=== PATIENT | male | born 1960 | race Caucasian/White ===

== ENCOUNTER 2023-06-25 12:00 | Outpatient (CLI) | payer OTHER, SELFPAY ==
[2023-06-25 12:55] LABS: Glucose Point of Care 237 mg/dl (65-105)
[2023-06-25 12:56] LABS: Glucose Point of Care 231 mg/dl (65-105)
== END 2023-06-25 12:01 | disposition home or self-care (01) ==
PROVIDERS: PCP Internal Medicine; Visit Provider Internal Medicine
DX: R91.8 Other nonspecific abnormal finding of lung field (principal)
CPT/HCPCS: 99199

== ENCOUNTER 2023-07-02 13:42 | Outpatient (CLI) | payer OTHER, SELFPAY ==
--- NOTE | ~2023-07-02 | PE_ITS ---
EXAMINATION: PET skull to mid thigh DATE: 07/02/2023 15:36 INDICATION: Multiple pulmonary nodules TECHNIQUE: Blood glucose level was 108 mg/dL. 9.584 mCi of 18-fluorodeoxyglucose (18-FDG) was adminis tered i.v. Low dose computed tomography (CT) images were acquired from the base of the brain to the p roximal thighs for attenuation correction and anatomic localization. Positron emission tomography (PE T) images were acquired in the same distribution beginning 51 minutes after injection. Images includi ng fused PET/CT images were reconstructed in axial, coronal, and sagittal planes. Automated exposure control technique was employed. The dose-length product was 677.99mGy-cm. COMPARISON: None FINDINGS: Head/neck: There is symmetric increased activity in the oral cavity, palatine tonsils, submandibular glands and ocular muscles without CT correlate, likely physiologic. No pathologically enlarged cervical lymphade nopathy or suspicious foci of increased FDG uptake in the visualized head or neck. Chest: Mild emphysema. 18 x 12 mm spiculated subsolid nodule at the posterior segment of the left upper lobe without significant increased FDG uptake with maximal SUV of 1.7. 2.8 x 1.9 cm nodule at the junctio n of the superior and basilar segments of the left lower lobe with maximal SUV of 8.5 suspicious for primary bronchogenic carcinoma. Small focus of mild increased FDG uptake with maximal SUV of 5.0 at t he left hilum along the pulmonary vasculature to the left lower lobe. This could represent a reactive or metastatic lymph node however a discrete lymph node is unable to be distinguished from the vascul ature in the absence of intravenous contrast. No other suspicious pulmonary nodules or pleural effusi on. Heart size is normal. Small amount of atherosclerotic coronary artery calcific lesion. No pericar dial effusion. Thoracic aorta is normal in caliber. No pathologically enlarged or FDG avid mediastina l lymphadenopathy. Subcentimeter focus of prominent FDG uptake with maximal SUV of 11.6 cm with a 6 m m sclerotic lesion along the lateral margin of the scapular body which is concerning for metastatic d isease. Abdomen/pelvis/proximal thighs: Physiologic renal accumulation and excretion of FDG activity in the kidneys, bladder and along portio ns of ureters. Normal degree and heterogenous pattern of increased uptake throughout the liver withou t radiologic correlate or dominant FDG avid lesion. Multiple calcified gallstones within the otherwis e normal-appearing gallbladder. The pancreas, spleen and bilateral adrenal glands are normal. Mild up take scattered throughout the bowels without radiologic correlate, also likely physiologic. There is subtle sclerosis at the right posterior aspect of the L1 vertebral body where there is additional inc reased FDG uptake with maximal SUV of 8.3. A few additional foci of prominent bone uptake in the pelv is. This includes a lesion at the cephalad aspect of the right sacral ala with maximal SUV of 14.7 an d subtle corresponding ill-defined increased marrow density. 1.5 cm lytic lesion at the right side of the S4 vertebral body which erodes through the anterior cortex and with increased FDG uptake with ma ximal SUV of 11.3. There is a lesion without evident correlate on the CT imaging at the right innomin ate bone with maximal SUV of 15.4. Finally there is an approximately 1 cm ill-defined sclerotic lesio n at the left pubic body with maximal SUV of 7.1. No other abnormal foci of increased FDG uptake or p athologically enlarged lymphadenopathy in the abdomen, pelvis or proximal thighs. IMPRESSION: 1. Increased FDG uptake associated with a 2.8 x 1.9 cm left lower lobe nodule suspicious for primary bronchogenic carcinoma. 2. Small focus of mild uptake at the left hilum suspicious for a metastatic lymph node which is unabl e to distinguish from the pulmonary vasculature on noncontrast imaging. No other suspec
[2023-07-02 14:15] LABS: Glucose Point of Care 108 mg/dl (65-105)
== END 2023-07-02 13:43 | disposition home or self-care (01) ==
PROVIDERS: PCP Internal Medicine; Visit Provider Internal Medicine
DX: R91.8 Other nonspecific abnormal finding of lung field (principal); K80.20 Calculus of gallbladder without cholecystitis without obstruction; M89.9 Disorder of bone, unspecified
CPT/HCPCS: 78815; A9552

== ENCOUNTER 2025-01-19 15:55 | Emergency (ER) | payer OTHER, SELFPAY ==
--- NOTE | ~2025-01-19 | CT_ITS ---
CLINICAL INDICATION: Fall with left hip pain. COMPARISON: Reference is made to a PET/CT dated 07/02/2023. TECHNIQUE: Computed tomography (CT) of the pelvis was performed without intravenous contrast. The dos e-length product was 471.22 mGy-cm. FINDINGS/OBSERVATIONS: A comminuted fracture of the left superior pubic ramus is identified, adjacent to the pubic symphysis without normal mineralization for which bony metastatic disease suspected. An expansile lytic and blastic lesion is identified within the distal sacrum, also likely representin g metastatic disease. No additional osseous lesions are appreciated. IMPRESSION: Comminuted fracture of the left superior pubic ramus. Metastatic bony disease, as detailed above Reviewed, dictated and finalized at location A.
[2025-01-19 15:58] VITALS: BP 149/89; PULSE 74; RESP 16; TEMP 36.8; O2SAT 96
--- OUTSIDE RECORDS SUMMARY | 2025-01-19 15:58 | XMS_ITS | Data Portability ---
Author Organization [facility] [place], Main Office Address [address] [place] [address] Assessment No assessment recorded. Plan of Treatment Reminders Order Date Submit Date Provider Last Modified By Organization Details Last Modified Time Details Appointments Any 15 2024 09:15A Latasha Colón MD Not available Not available Not available Lab glycohemo globin, total, blood 2023 024 [facility] (Lab), [address] [place], [address], 06/22/2024 21:05:16 CMP, serum or plasma 2023 024 [facility] (Lab), [address] [place], [address], 06/22/2024 20:14:26 PSA, serum or plasma 2023 024 [facility] (Lab), [address] [place], [address], 02/18/2024 22:31:27 glycohemo globin, total, blood 2023 024 [facility] (Lab), [address] [place], [address], 02/18/2024 22:29:09 CMP, serum or plasma 2023 024 [facility] (Lab), [address] [place], [address], 02/18/2024 21:08:14 glycohemo globin, total, blood 2022 023 [facility] (Lab), [address] [place], [address], 10/22/2023 20:31:08 CMP, serum or plasma 2022 023 [facility] (Lab), [address] [place], [address], 10/22/2023 20:23:13 microalbu min, urine 2022 023 [facility] (Lab), [address] [place], [address], 10/23/2023 01:14:33 urinalysi s, complete 2022 023 [facility] (Lab), [address] [place], [address], 10/23/2023 02:28:39 lipid panel, serum 2022 023 [facility] (Lab), [address] [place], [address], 10/22/2023 20:23:21 TSH, serum or plasma [email or web address] [place] [address] (Lab), [address] [place], [address], 09/30/2023 08:48:01 Referral None recorded. Procedures None recorded. Surgeries None recorded. Imaging None recorded. Medication Orders glimepiri de 4 mg tablet 2023 024 [facility] #[id number], [address] , [place], [place], [id number], 06/22/2024 10:29:37 amlodipin e 10 mg tablet 04/2023 [facility] #[id number], [address], [place], [place], [id number], 02/18/2024 11:43:42 glimepiri de 4 mg tablet 2023 [facility] #[id number], [address], [place], [place], [id number], 02/18/2024 11:43:41 Patient TargetsNo targets recorded. Patient Instructions Encounter Date Encounter Id Patient Instructions Last Modified By Organization Details Last Modified Time 09/16/2023 [id number] risk assessment* [email or web address] Not availabl e 09/16/2023 13:16:43 INFLUENZA VACCIN E Recommended today, but patient declined TD/TDAP Recommended today, patient declined Ordered Patient will get at local pharmacy/health department PNEUMONIA VACCINE Ordered Recommend ed today, patient declined Patient will get at local pharmacy/health department Recomm ended at age 67 SHINGLES Ordered Recommend ed today, patient declined Patient will get at local pharmacy/health department PSA COLORECTAL SCREENING No screening necessary patient is up to date DEPRESSION SCREENING Negative BMI Overweight continue your current weight loss efforts try to lose 5% of your body weight try to lose 10% of your body weight NUTRITION PHYSICAL ACTIVITY Need more exercise/physical activity ALCOHOL USE No alcohol use Occasional/So cial Use TOBACCO USE former smoker LUNG CANCER SCREENING SEXUALLY ACTIVE HEPATITIS C SCREENING Not indicated GLUCOSE SCREENING LIPID SCREENING [email or web address] Not available 09/16/2023 12:03:31 Reason for Referral None Reported. Results Created Date Observation Date Name Description Value Unit Range Abnormal Flag Note LastModifiedBy Organization Detail LastModifiedTime 10/22/2010/22/2023 URINA LYSIS COMPL ETE, IRIS color ORANGE abnormal Not Available [facility] (Lab) [address] [place], [address], 10/22/2023 20:17:44 10/22/20 23 10/22/2023 URINA LYSIS COMPL ETE, IRIS appear EXTRA TURBID abnormal Not Available [facility] (Lab) [address] [place], [address], 10/22/2023 20:17:44 10/22/20 23 10/22/2023 URINA LYSIS COMPL ETE, IRIS specific gravity 1.021 1.001- 1.030 Not Available [facility] (Lab) [address] [place], [address], 10/22/2023 20:17:44 10/22/20 23 10/22/2023 URINA LYSIS COMPL ETE, IRIS pH 5.5 pH_un its 5.0-9. 0 Not Available [facility] (Lab) [address] [place], [address], 10/22/2023 20:17:44 10/22/20 23 10/22/2023 URINA LYSIS COMPL ETE, IRIS leukocytes 75 rose/u L negati ve- abnormal Not Available [facility] (Lab) [address] [place], [address], 10/22/2023 20:17:44 10/22/20 23 10/22/2023 URINA LYSIS COMPL ETE, IRIS nitrite NEGATI VE negati ve- Not Available [facility] (Lab) [address] [place], [address], 10/22/2023 20:17:44 10/22/20 23 10/22/2023 URINA LYSIS COMPL ETE, IRIS protein 50 mg/dL negati ve- abnormal Not Available [facility] (Lab) [address] [place], [address], 10/22/2023 20:17:44 10/22/20 23 10/22/2023 URINA LYSIS COMPL ETE, IRIS glucose 50 mg/dL normal - abnormal Not Available [facility] (Lab) [address] [place], [address], 10/22/2023 20:17:44 10/22/20 23 10/22/2023 URINA LYSIS COMPL ETE, IRIS ketones NEGATI VE mg/dL negati ve- Not Available [facility] (Lab) [address] [place], [address], 10/22/2023 20:17:44 10/22/2010/22/2023 URINA LYSIS COMPL ETE, IRIS urobilinogen NORMAL mg/dL normal - Not Available [facility] (Lab) [address] [place], [address], 10/22/2023 20:17:44 10/22/20 23 10/22/2023 URINA LYSIS COMPL ETE, IRIS bilirubin NEGATI VE mg/dL negati ve- Not Available [facility] (Lab) [address] [place], [address], 10/22/2023 20:17:44 10/22/20 23 10/22/2023 URINA LYSIS COMPL ETE, IRIS blood NEGATI VE mg/dL negati ve- Not Available [facility] (Lab) [address] [place], [address], 10/22/2023 20:17:44 10/22/20 23 10/22/2023 URINA LYSIS COMPL ETE, IRIS white blood cells NONE /i??h pfi?? 0-8 Not Available [facility] (Lab) [address] [place], [address], 10/22/2023 20:17:44 10/22/20 23 10/22/2023 URINA LYSIS COMPL ETE, IRIS red blood cells NONE /i??h pfi?? 0-4 Not Available [facility] (Lab) [address] [place], [address], 10/22/2023 20:17:44 10/22/20 23 10/22/2023 URINA LYSIS COMPL ETE, IRIS bacteria NONE Not Available [facility] (Lab) [address] [place], [address], 10/22/2023 20:17:44 10/22/20 23 10/22/2023 URINA LYSIS COMPL ETE, IRIS mucous MANY /i??l pfi?? abnormal Not Available [facility] (Lab) [address] [place], [address], 10/22/2023 20:17:44 10/22/20 23 10/22/2023 URINA LYSIS COMPL ETE, IRIS squamous epithelial NONE /i??l pfi?? Not Available [facility] (Lab) [address] [place], [address], 10/22/2023 20:17:44 10/22/20 23 10/22/2023 URINA LYSIS COMPL ETE, IRIS amorphous crystal FEW /i??h pfi?? abnormal Not Available [facility] (Lab) [address] [place], [address], 10/22/2023 20:17:44 10/22/20 23 10/22/2023 COMPR EHENS DELORIS METAB OLIC PANEL sodium 139 mmol/ L 137-14 5 Not Available [facility] (Lab) [address] [facility] [place], [address], 10/22/2023 20:23:13 10/22/20 23 10/22/2023 COMPR EHENS DELORIS METAB OLIC PANEL potassium 4.4 mmol/ L 3.5-5. 1 Not Available [facility] (Lab) [address] [place], [address], 10/22/2023 20:23:13 10/22/20 23 10/22/2023 COMPR EHENS DELORIS METAB OLIC PANEL chloride 104 mmol/ L 98-107 Not Available [facility] (Lab) [address] [place], [address], 10/22/2023 20:23:13 10/22/20 23 10/22/2023 COMPR EHENS DELORIS METAB OLIC PANEL carbon dioxide 25 mmol/ L 22-30 Not Available [facility] (Lab) [address] [place], [address], 10/22/2023 20:23:13 10/22/20 23 10/22/2023 COMPR EHENS DELORIS METAB OLIC PANEL anion gap 14.4 mmol/ L 14-22 Not Available [facility] (Lab) [address] [place], [address], 10/22/2023 20:23:13 10/22/20 23 10/22/2023 COMPR EHENS DELORIS METAB OLIC PANEL glucose 241 mg/dL 70-99 high Not Available [facility] (Lab) [address] [place], [address], 10/22/2023 20:23:13 10/22/20 23 10/22/2023 COMPR EHENS DELORIS METAB OLIC PANEL BUN 12 mg/dL 8-19 Not Available [facility] (Lab) [address] [place], [address], 10/22/2023 20:23:13 10/22/20 23 10/22/2023 COMPR EHENS DELORIS METAB OLIC PANEL creatinine 0.82 mg/dL 0.66-1 .25 Not Available [facility] (Lab) [address] [place], [address], 10/22/2023 20:23:13 10/22/20 23 10/22/2023 COMPR EHENS DELORIS METAB OLIC PANEL GFR >60 Refer ence Range : Palmer ge GFR Healt hy Adult : >60 mL/mi n/1.7 3 m2 Chron ic Kidne y Disea se: 15-60 mL/mi n/1.7 3 m2 Kidne y Failu re: <15/m L/min /1.73 m2 www.[email or web address]. nih.g ov The MDRD study equat ion has not been valid ated in child sherie <18 years of age; pregn ant women ; the elder ly >85 years of age; or in some racia l or ethni c subgr oups, such as Hispa nics. Outsi de the valid ated mp eters , estim ated GFR is less accur ate, requi ring clini romina judgm ent on a case- by-ca se basis . Clini romina inter preta tion for other races and ages must be made by the clini marck. The MDRD study equat ion has not been valid ated for the evalu ation of serum creat inine relat ed to nutri ernesto l statu s or medic ation usage . For perso ns <18 years of age, a pedia tric GFR calcu lator is avail able on the [facility] websi te: https ://nicolas w.kid yesenia.o rg/pr ofess ional s/kdo qi/gf r_cal culat or Not Available [facility] (Lab) [address] [place], [address], 10/22/2023 20:23:13 10/22/20 23 10/22/2023 COMPR EHENS DELORIS METAB OLIC PANEL alkaline phosphatase 117 U/L 38-126 Not Available [facility] (Lab) [address] [place], [address], 10/22/2023 20:23:13 10/22/20 23 10/22/2023 COMPR EHENS DELORIS METAB OLIC PANEL alanine aminotransfe rase 38 U/L 0-50 Not Available [facility] (Lab) [address] [place], [address], 10/22/2023 20:23:13 10/22/20 23 10/22/2023 COMPR EHENS DELORIS METAB OLIC PANEL aspartate aminotransfe rase 29 U/L 15-46 Not Available [facility] (Lab) [address] [place], [address], 10/22/2023 20:23:13 10/22/20 23 10/22/2023 COMPR EHENS DELORIS METAB OLIC PANEL bilirubin, total 0.60 mg/dL 0.20-1 .30 Not Available [facility] (Lab) [address] [place], [address], 10/22/2023 20:23:13 10/22/20 23 10/22/2023 COMPR EHENS DELORIS METAB OLIC PANEL calcium 9.3 mg/dL 8.4-10 .2 Not Available [facility] (Lab) [address] [place], [address], 10/22/2023 20:23:13 10/22/20 23 10/22/2023 COMPR EHENS DELORIS METAB OLIC PANEL total protein 7.0 g/dL 6.3-8. 2 Not Available [facility] (Lab) [address] [place], [address], 10/22/2023 20:23:13 10/22/20 23 10/22/2023 COMPR EHENS DELORIS METAB OLIC PANEL albumin 4.3 g/dL 3.4-5. 0 Not Available [facility] (Lab) [address] [place], [address], 10/22/2023 20:23:13 10/22/20 23 10/22/2023 COMPR EHENS DELORIS METAB OLIC PANEL globulin 2.7 g/dL 2.6-4. 2 Not Available [facility] (Lab) [address] [place], [address], 10/22/2023 20:23:13 10/22/20 23 10/22/2023 COMPR EHENS DELORIS METAB OLIC PANEL A/G ratio 1.6 ratio 1.0-2. 0 Not Available [facility] (Lab) [address] [place], [address], 10/22/2023 20:23:13 10/22/20 23 10/22/2023 LIPID PANEL cholesterol 214 mg/dL 140-19 9 high NIH ARNOLDO NSUS RECOM MENDA TION FOR FARTUN STERO L: ADULT CHILD LOW RISK: <200 <170 BORDE RLINE : <200- 239 ----- HIGH RISK: >240 >200 Not Available [facility] (Lab) [address] [place], [address], 10/22/2023 20:23:21 10/22/20 23 10/22/2023 LIPID PANEL triglyceride s 287 mg/dL 0-150 high NIH ARNOLDO NSUS REPOR T RECOM MENDA TION FOR TRIGL YCERI ASHLEY: ADULT CHILD LOW RISK: <150 ----- BODER LINE: 150-1 99 ----- HIGH RISK: >200 ----- Not Available [facility] (Lab) [address] [place], [address], 10/22/2023 20:23:21 10/22/20 23 10/22/2023 LIPID PANEL HDL cholesterol 32 mg/dL 40- low Not Available [facility] (Lab) [address] [place], [address], 10/22/2023 20:23:21 10/22/2010/22/2023 LIPID PANEL LDL cholesterol, calculated 125 mg/dL 0-130 NIH ARNOLDO NSUS REPOR T RECOM MENDA TIONS FOR LDL: ADULT CHILD LOW RISK <130 <110 (OPTI MAL LDL) <100 ----- BORDE RLINE : 130-1 59 ----- HIGH RISK: >160 >130 A TRIGL YCERI DE RESUL T >400 INVAL IDATE S THE CALCU LATIO N FOR LDL FRACT IONAT ION - THE LDL RESUL T WILL NOT BE REPOR HEENA. Not Available [facility] (Lab) [address] [place], [address], 10/22/2023 20:23:21 10/22/20 23 10/22/2023 HEMOG LOBIN A1C HA1C 8.9 % 4.0-6. 0 high Diabe rita Scree alice Crite peewee: <5.7% Consi stent with absen ce of diabe rita 5.7-6 .4% Consi stent with incre ased risk for diabe rita (pred iabet es) >OR=6 .5% Consi stent with diabe rita REFER ENCE: Diabe rita Care 2016, 39(Pelaez ppl.1 ):s13 -s22 Not Available [facility] (Lab) [address] [place], [address], 10/22/2023 20:31:08 10/22/20 23 10/23/2023 MICRO ALBUM IN RANDO M URINE microalbumin , urine 94.7 mg/L 0.0-16 .6 high Not Available [facility] (Lab) [address] [place], [address], 10/23/2023 01:14:33 02/18/20 24 02/18/2024 COMPR EHENS DELORIS METAB OLIC PANEL sodium 136 mmol/ L 137-14 5 low Not Available [facility] (Lab) [address] [place], [address], 02/18/2024 21:08:14 02/18/20 24 02/18/2024 COMPR EHENS DELORIS METAB OLIC PANEL potassium 4.4 mmol/ L 3.5-5. 1 Not Available [facility] (Lab) [address] [place], [address], 02/18/2024 21:08:14 02/18/20 24 02/18/2024 COMPR EHENS DELORIS METAB OLIC PANEL chloride 102 mmol/ L 98-107 Not Available [facility] (Lab) [address] [place], [address], 02/18/2024 21:08:14 02/18/20 24 02/18/2024 COMPR EHENS DELORIS METAB OLIC PANEL carbon dioxide 25 mmol/ L 22-30 Not Available [facility] (Lab) [address] [place], [address], 02/18/2024 21:08:14 02/18/20 24 02/18/2024 COMPR EHENS DELORIS METAB OLIC PANEL anion gap 13.4 mmol/ L 14-22 low Not Available [facility] (Lab) [address] [place], [address], 02/18/2024 21:08:14 02/18/20 24 02/18/2024 COMPR EHENS DELORIS METAB OLIC PANEL glucose 379 mg/dL 70-99 high Not Available [facility] (Lab) [address] [place], [address], 02/18/2024 21:08:14 02/18/20 24 02/18/2024 COMPR EHENS DELORIS METAB OLIC PANEL BUN 14 mg/dL 8-19 Not Available [facility] (Lab) [address] [place], [address], 02/18/2024 21:08:14 02/18/20 24 02/18/2024 COMPR EHENS DELORIS METAB OLIC PANEL creatinine 0.80 mg/dL 0.66-1 .25 Not Available [facility] (Lab) [address] [place], [address], 02/18/2024 21:08:14 02/18/20 24 02/18/2024 COMPR EHENS DELORIS METAB OLIC PANEL GFR >60 Refer ence Range : Palmer ge GFR Healt hy Adult : >60 mL/mi n/1.7 3 m2 Chron ic Kidne y Disea se: 15-60 mL/mi n/1.7 3 m2 Kidne y Failu re: <15/m L/min /1.73 m2 www.n iddk. nih.g ov The MDRD study equat ion has not been valid ated in child sherie <18 years of age; pregn ant women ; the elder ly >85 years of age; or in some racia l or ethni c subgr oups, such as Hispa nics. Outsi de the valid ated mp eters , estim ated GFR is less accur ate, requi ring clini romina judgm ent on a case- by-ca se basis . Clini romina inter preta tion for other races and ages must be made by the clini marck. The MDRD study equat ion has not been valid ated for the evalu ation of serum creat inine relat ed to nutri ernesto l statu s or medic ation usage . For perso ns <18 years of age, a pedia tric GFR manju fonseca is avail able on the [facility] websi te: https :[email or web address] w.anabel galindoy.o lizbeth/pr ofess ional s/kdo qi/gf r_cal culat or Not Available [facility] (Lab) [address] [place], [address], 02/18/2024 21:08:14 02/18/20 24 02/18/2024 COMPR EHENS DELORIS METAB OLIC PANEL alkaline phosphatase 95 U/L 38-126 Not Available [facility] (Lab) [address] [place], [address], 02/18/2024 21:08:14 02/18/20 24 02/18/2024 COMPR EHENS DELORIS METAB OLIC PANEL alanine aminotransfe rase 102 U/L 0-50 high Not Available [facility] (Lab) [address] [place], [address], 02/18/2024 21:08:14 02/18/20 24 02/18/2024 COMPR EHENS DELORIS METAB OLIC PANEL aspartate aminotransfe rase 53 U/L 15-46 high Not Available [facility] (Lab) [address] [place], [address], 02/18/2024 21:08:14 02/18/20 24 02/18/2024 COMPR EHENS DELORIS METAB OLIC PANEL bilirubin, total 0.50 mg/dL 0.20-1 .30 Not Available [facility] (Lab) [address] [place], [address], 02/18/2024 21:08:14 02/18/20 24 02/18/2024 COMPR EHENS DELORIS METAB OLIC PANEL calcium 10.0 mg/dL 8.4-10 .2 Not Available [facility] (Lab) [address] [place], [address], 02/18/2024 21:08:14 02/18/20 24 02/18/2024 COMPR EHENS DELORIS METAB OLIC PANEL total protein 7.0 g/dL 6.3-8. 2 Not Available [facility] (Lab) [address] [place], [address], 02/18/2024 21:08:14 02/18/20 24 02/18/2024 COMPR EHENS DELORIS METAB OLIC PANEL albumin 4.6 g/dL 3.4-5. 0 Not Available [facility] (Lab) [address] [place], [address], 02/18/2024 21:08:14 02/18/20 24 02/18/2024 COMPR EHENS DELORIS METAB OLIC PANEL globulin 2.4 g/dL 2.6-4. 2 low Not Available [facility] (Lab) [address] [place], [address], 02/18/2024 21:08:14 02/18/20 24 02/18/2024 COMPR EHENS DELORIS METAB OLIC PANEL A/G ratio 1.9 ratio 1.0-2. 0 Not Available [facility] (Lab) [address] [place], [address], 02/18/2024 21:08:14 02/18/20 24 02/18/2024 HEPAT IC/LI NICK PANEL alkaline phosphatase 95 U/L 38-126 Not Available [facility] (Lab) [address] [place], [address], 02/18/2024 22:11:58 02/18/20 24 02/18/2024 HEPAT IC/LI NICK PANEL alanine aminotransfe rase 102 U/L 0-50 high Not Available [facility] (Lab) [address] [place], [address], 02/18/2024 22:11:58 02/18/20 24 02/18/2024 HEPAT IC/LI NICK PANEL aspartate aminotransfe rase 53 U/L 15-46 high Not Available [facility] (Lab) [address] [place], [address], 02/18/2024 22:11:58 02/18/20 24 02/18/2024 HEPAT IC/LI NICK PANEL bilirubin, total 0.50 mg/dL 0.20-1 .30 Not Available [facility] (Lab) [address] [place], [address], 02/18/2024 22:11:58 02/18/20 24 02/18/2024 HEPAT IC/LI NICK PANEL bilirubin, conjugated (direct) 0.00 mg/dL 0.00-0 .30 Not Available [facility] (Lab) [address] [place], [address], 02/18/2024 22:11:58 02/18/20 24 02/18/2024 HEPAT IC/LI NICK PANEL biliurubin,u ncong. (indirect) 0.30 mg/dL 0.00-1 .1 Not Available [facility] (Lab) [address] [place], [address], 02/18/2024 22:11:58 02/18/20 24 02/18/2024 HEPAT IC/LI NICK PANEL total protein 7.0 g/dL 6.3-8. 2 Not Available [facility] (Lab) [address] [place], [address], 02/18/2024 22:11:58 02/18/20 24 02/18/2024 HEPAT IC/LI NICK PANEL albumin 4.6 g/dL 3.4-5. 0 Not Available [facility] (Lab) [address] [place], [address], 02/18/2024 22:11:58 02/18/20 24 02/18/2024 HEPAT IC/LI NICK PANEL globulin 2.4 g/dL 2.6-4. 2 low Not Available [facility] (Lab) [address] [place], [address], 02/18/2024 22:11:58 02/18/20 24 02/18/2024 HEPAT IC/LI NICK PANEL A/G ratio 1.9 ratio 1.0-2. 0 Not Available [facility] (Lab) [address] [place], [address], 02/18/2024 22:11:58 02/18/20 24 02/18/2024 PSA SCREE N PSA medicare screen 1.99 NG/mL 0.00-4 .00 Not Available [facility] (Lab) [address] [place], [address], 02/18/2024 21:24:58 02/18/20 24 02/18/2024 HEMOG LOBIN A1C HA1C 9.2 % 4.0-6. 0 high Diabe rita Scree alice Crite peewee: <5.7% Consi stent with absen ce of diabe rita 5.7-6 .4% Consi stent with incre ased risk for diabe rita (pred iabet es) >OR=6 .5% Consi stent with diabe rita REFER ENCE: Diabe rita Care 2016, 39(Pelaez ppl.1 ):s13 -s22 Not Available [facility] (Lab) [address] [place], [address], 02/18/2024 22:29:08 06/22/20 24 06/22/2024 COMPR EHENS DELORIS METAB OLIC PANEL sodium 135 mmol/ L 137-14 5 low Not Available [facility] (Lab) [address] [place], [address], 06/22/2024 20:14:26 06/22/20 24 06/22/2024 COMPR EHENS DELORIS METAB OLIC PANEL potassium 4.4 mmol/ L 3.5-5. 1 Not Available [facility] (Lab) [address] [place], [address], 06/22/2024 20:14:26 06/22/20 24 06/22/2024 COMPR EHENS DELORIS METAB OLIC PANEL chloride 108 mmol/ L 98-107 high Not Available [facility] (Lab) [address] [place], [address], 06/22/2024 20:14:26 06/22/20 24 06/22/2024 COMPR EHENS DELORIS METAB OLIC PANEL carbon dioxide 21 mmol/ L 22-30 low Not Available [facility] (Lab) [address] [place], [address], 06/22/2024 20:14:26 06/22/20 24 06/22/2024 COMPR EHENS DELORIS METAB OLIC PANEL anion gap 10.4 mmol/ L 14-22 low Not Available [facility] (Lab) [address] [place], [address], 06/22/2024 20:14:26 06/22/20 24 06/22/2024 COMPR EHENS DELORIS METAB OLIC PANEL glucose 323 mg/dL 70-99 high Not Available [facility] (Lab) [address] [place], [address], 06/22/2024 20:14:26 06/22/20 24 06/22/2024 COMPR EHENS DELORIS METAB OLIC PANEL BUN 19 mg/dL 8-19 Not Available [facility] (Lab) [address] [place], [address], 06/22/2024 20:14:26 06/22/20 24 06/22/2024 COMPR EHENS DELORIS METAB OLIC PANEL creatinine 0.98 mg/dL 0.66-1 .25 Not Available [facility] (Lab) [address] [place], [address], 06/22/2024 20:14:26 06/22/20 24 06/22/2024 COMPR EHENS DELORIS METAB OLIC PANEL GFR >60 Refer ence Range : Palmer ge GFR Healt hy Adult : >60 mL/mi n/1.7 3 m2 Chron ic Kidne y Disea se: 15-60 mL/mi n/1.7 3 m2 Kidne y Failu re: <15/m L/min /1.73 m2 www.n iddk. [facility].g ov The MDRD study equat ion has not been valid ated in child sherie <18 years of age; pregn ant women ; the elder ly >85 years of age; or in some racia l or ethni c subgr oups, such as Hispa nics. Outsi de the valid ated mp eters , estim ated GFR is less accur ate, requi ring clini romina judgm ent on a case- by-ca se basis . Clini romina inter preta tion for other races and ages must be made by the clini marck. The MDRD study equat ion has not been valid ated for the evalu ation of serum creat inine relat ed to nutri ernesto l statu s or medic ation usage . For perso ns <18 years of age, a pedia tric GFR calcu lator is avail able on the [facility] websi te: [email or web address] :[email or web address] [email or web address] r_[email or web address] culat or Not Available [facility] (Lab) [address] [place], [address], 06/22/2024 20:14:26 06/22/20 24 06/22/2024 COMPR EHENS DELORIS METAB OLIC PANEL alkaline phosphatase 102 U/L 38-126 Not Available [facility] (Lab) [address] [place], [address], 06/22/2024 20:14:26 06/22/20 24 06/22/2024 COMPR EHENS DELORIS METAB OLIC PANEL alanine aminotransfe rase 38 U/L 0-50 Not Available [facility] (Lab) [address] [place], [address], 06/22/2024 20:14:26 06/22/20 24 06/22/2024 COMPR EHENS DELORIS METAB OLIC PANEL aspartate aminotransfe rase 28 U/L 15-46 Not Available [facility] (Lab) [address] [place], [address], 06/22/2024 20:14:26 06/22/20 24 06/22/2024 COMPR EHENS DELORIS METAB OLIC PANEL bilirubin, total 0.50 mg/dL 0.20-1 .30 Not Available [facility] (Lab) [address] [place], [address], 06/22/2024 20:14:26 06/22/20 24 06/22/2024 COMPR EHENS DELORIS METAB OLIC PANEL calcium 9.6 mg/dL 8.4-10 .2 Not Available [facility] (Lab) [address] [place], [address], 06/22/2024 20:14:26 06/22/20 24 06/22/2024 COMPR EHENS DELORIS METAB OLIC PANEL total protein 6.5 g/dL 6.3-8. 2 Not Available [facility] (Lab) [address] [place], [address], 06/22/2024 20:14:26 06/22/20 24 06/22/2024 COMPR EHENS DELORIS METAB OLIC PANEL albumin 3.9 g/dL 3.4-5. 0 Not Available [facility] (Lab) [address] [place], [address], 06/22/2024 20:14:26 06/22/20 24 06/22/2024 COMPR EHENS DELORIS METAB OLIC PANEL globulin 2.6 g/dL 2.6-4. 2 Not Available [facility] (Lab) [address] [place], [address], 06/22/2024 20:14:26 06/22/20 24 06/22/2024 COMPR EHENS DELORIS METAB OLIC PANEL A/G ratio 1.5 ratio 1.0-2. 0 Not Available [facility] (Lab) [address] [place], [address], 06/22/2024 20:14:26 06/22/20 24 06/22/2024 HEMOG LOBIN A1C HA1C 9.5 % 4.0-6. 0 high Diabe rita Scree alice Crite peewee: <5.7% Consi stent with absen ce of diabe rita 5.7-6 .4% Consi stent with incre ased risk for diabe rita (pred iabet es) >OR=6 .5% Consi stent with diabe rita REFER ENCE: Diabe rita Care 2016, 39(Pelaez ppl.1 ):s13 -s22 Not Available [facility] (Lab) [address] [place], [address], 06/22/2024 21:05:16 07/03/20 23 07/02/2023 PET-C T, skull base to mid-t high scan No observ ation record ed. [email or web address] [facility] [address], [place], [address], 07/14/2023 12:18:04 Result Notes None recorded. Problems Name Problem SNOMED Code Status Onset Date Resolution Date Notes Provider Name and Address Organization Details Recorded Time CT of chest abnormal 01275046453 900969 Active 2021 Not Available [facility] 3 20:41:03 Adult health examinati on Active 2020 Not Available [facility] 3 20:41:03 Hypertrig lyceridem ia 129481283 Active 2018 Not Available [facility] 3 20:41:03 Type 2 diabetes mellitus without complicat ion 989788736 Active 2021 Not Available [facility] 3 20:41:03 Obesity 868545962 Active 2018 Not Available [facility] 3 20:41:03 Hyperlipi demia 56051696 Active 2018 Not Available [facility] 3 20:41:03 Essential hypertens ion 53503000 Active 2020 Not Available [facility] 3 20:41:03 Pruritic rash 07295895 Completed 202107/09/2022 Not Available [facility] 3 20:41:03 Smoker 87977800 Active 2020 Not Available [facility] 3 20:41:03 Hyperglyc emia 97191464 Completed 201801/19/2019 Not Available [facility] 3 20:41:03 Diabetes mellitus 78749999 Active 2022 MAGNUS Richardson null, [place] [employer] [facility] 3 14:58:33 Solitary nodule of lung 061903847 Active 2022 Chuck Colón MD [address], [place], [address] , [facility] [employer] [facility] 3 15:36:01 Multiple nodules of lung 768278216 Active 2022 Mira Becerra LPN null, [employer] [facility] [facility] 3 14:08:35 Lung mass 950191946 Active 2022 Chuck Colón MD [address], [address], [place], [address] , [employer] [facility] 3 10:38:48 Palpitati ons 39170471 Active 2022 Chuck Colón MD [address], [place], [address] , [employer] [facility] 3 11:36:28 Metastati c malignant neoplasm to lung 40671813 Active 2022 Chuck Colón MD [address], [address], [place], [address] , [facility] [employer] [facility] 4 11:46:45 Metastati c malignant neoplasm to lung 27144976 Active 2022 Chuck Colón MD [address] [address], [facility] [address], [place], [address] , [facility] 3 11:08:07 Uncontrol led type 2 diabetes mellitus 962392787 Active 2023 Mira Becerra LPN null, [facility] 4 14:23:39 Type 2 diabetes mellitus 03839949 Active 2024 Mira Becerra LPN null, [facility] 5 11:51:56 Notes:Medical History: Bilat eral tinnitus Eosinophils 160/uL IgE 33 IU/mL Alpha- 1 antitrypsin PiMM 154 mg% Nicotine dependence Mod COPD, declined pulm rehab RLL calcified granuloma 2.3 cm spiculated GGO/ASHLEY nodule 3.3 cm irregular GGO/LLL mass Obesity Hypertension Mixed hyperlipidemia T2DM Cholelithiasis 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 Procedures Surgical History Date Name Laterality Status Provider Name and Address Organization Details Recorded Time 9 excision of hydrocele completed Not Available [facility] 12/31/2022 20:39:59 9 excision of hydrocele completed Not Available [facility] 12/31/2022 20:39:59 9 excision of hydrocele completed Not Available [facility] 12/31/2022 20:39:59 Imaging Results Imaging Date Name Status LastModified by Organiz ation Details LastModified Time 07/02/2023 PET-CT, skull base to mid-thigh scan completed [email or web address] [facility] [address], [place], [address], 07/14/2023 12:18:04 Procedure Notes None recorded. Medical Equipment None Reported. Allergies Allergen ID Allergen Name Allergen Category Reaction Reaction Severity Criticality Documentation Date Start Date Code Code System Note Provider Name and Address Organization Details Recorded Time 20310 Product containin g penicilli n (product) medicatio n Not available Not available Not available 12/31/2022 13146 8001 SNOMED Not Available [facility] 3 20:42:13 Medications Name Sig Start Date Stop Date Status Note LastModified by Organization Details LastModified Time insulin syringe 31g x 5/16 0.3 ml insulin syringe 31g x 5/16 [facility] completed Not Available Not Available Not Available clarithro mycin 500 mg tablet Take 1 tablet every 12 hours by oral route. active Not Available Not Available No t Available hydrocodo ne 5 mg-acetam inophen 325 mg tablet TAKE 1 TABLET BY MOUTH EVERY 6 HOURS NEEDED FOR PAIN active Not Available Not Available No t Available ondansetr on HCl 8 mg tablet TAKE 1 TABLET BY MOUTH EVERY 8 HOURS NEEDED FOR NAUSEA/V OMITING. 06/22 completed Not Available Not Available Not Available lisinopri l 20 mg tablet TAKE 1 TABLET BY MOUTH EVERY DAY 2024 active OMARI 06/22/24 NOV 02/07/25 ok to rf x 1 Not Available Not Available Not Available olanzapin e 5 mg tablet TAKE 1 TABLET BY MOUTH AT BEDTIME ON DAYS 1 -4 OF EACH CYCLE. 03/29 completed Not Available Not Available Not Available clobetaso l 0.05 % topical cream APPLY THIN COAT TO AFFECTED AREA TWICE A DAY 06/04 completed Not Available Not Available Not Available amlodipin e 5 mg tablet TAKE 1 TABLET BY MOUTH EVERY DAY 03/29 completed Not Available Not Available Not Available prochlorp erazine maleate 10 mg tablet TAKE 1 TABLET BY MOUTH EVERY 6 HOURS NEEDED FOR NAUSEA/V OMITING. 06/22 completed Not Available Not Available Not Available ciproflox acin 500 mg tablet TK 1 T PO Q 12 H 12/17 completed Not Available Not Available Not Available hydrocodo ne 10 mg-acetam inophen 325 mg tablet TK 1 T PO Q 4 H 12/07 completed Not Available Not Available Not Available glimepiri de 2 mg tablet TAKE 1 TABLET BY MOUTH EVERY DAY active Not Available Not Available No t Available glimepiri de 1 mg tablet TAKE 1 TABLET BY MOUTH TWICE A DAY 03/04 completed Not Available Not Available Not Available amlodipin e 10 mg tablet TAKE 1 TABLET BY MOUTH EVERY DAY 2024 active OMARI 06/22/24 NOV 02/07/25 ok to rf x 1 Not Available Not Available Not Available hydrocodo ne 7.5 mg-acetam inophen 325 mg tablet TK 1 T PO Q 6 H 05/28 completed Not Available Not Available Not Available simvastat in 20 mg tablet TAKE 1 TABLET BY MOUTH EVERY DAY active Not Available Not Available No t Available dexametha sone 4 mg tablet TAKE 1 TABLET BY MOUTH TWICE DAILY FOR 5 DAYS. START THE DAY BEFORE CHEMOTHE RAPY. 06/22 completed Not Available Not Available Not Available lisinopri l 10 mg tablet TAKE 1 TABLET BY MOUTH ONCE DAILY 02/15 completed Not Available Not Available Not Available glimepiri de 4 mg tablet TAKE 1 TABLET BY MOUTH TWICE DAILY active Not Available Not Available No t Available docusate sodium 100 mg capsule TAKE 1 CAPSULE BY MOUTHONC E DAILY active Not Available Not Available No t Available lisinopri l 20 mg-hydroc hlorothia zide 25 mg tablet TAKE 1 TABLET BY MOUTH EVERY DAY 06/21 completed Not Available Not Available Not Available insulin syringe U-100 with needle 0.3 mL 31 gauge x /16 USE FOUR TIMES DAILY NEEDED 07/19 completed Not Available Not Available Not Available folic acid 1 mg tablet TAKE 1 TABLET BY MOUTH ONCE DAILY active Not Available Not Available No t Available morphine ER 15 mg tablet,ex tended release TAKE 1 TABLET BY MOUTH EVERY 12 HOURS FOR CANCER PAIN active Not Available Not Available No t Available Novolog U-100 Insulin aspart 100 unit/mL subcutane ous solution INJECT UNDER THE SKIN PER MODERATE DOSE PER SLIDING SCALE . MAX DOSE 24 UNITS active Not Available Not Available No t Available insulin lispro (U-100) 100 unit/mL subcutane ous solution sliding scale as provided to patientI f blood sugar is 200-249 give yourself 2 units of insulin. If blood sugar is 250- 299 give yourself 4 units of insulin. If blood sugar is 300- 350 give yourself 6 units of insulin. If blood sugar is greater than 350 give yourself 8 units of insulin and call your doctor. 12/31 completed Not Available Not Available Not Available lisinopri l 10 mg-hydroc hlorothia zide 12.5 mg tablet TAKE 1 TABLET BY MOUTH EVERY DAY 06/20 completed Ok to separate till back in stock Not Available Not Available Not Available levofloxa maritza 500 mg tablet TAKE 1 TABLET BY MOUTH EVERY DAY 05/28 completed Not Available Not Available Not Available albuterol sulfate HFA 90 mcg/actua tion aerosol inhaler 06/04 completed Not Available Not Available Not Available metformin ER 500 mg tablet,ex tended release 24 hr TAKE 2 TABLETS BY MOUTH TWICE DAILY active Not Available Not Available No t Available insulin syringe U-100 with needle 0.5 mL 31 gauge x / active Not Available Not Available Not Available hydrochlo rothiazid e 12.5 mg tablet TAKE 1 TABLET BY MOUTH EVERY DAY 05/15 completed Not Available Not Available Not Available Suprep Bowel Prep Kit 17.5 gram-3.13 gram-1.6 gram oral solution MIX AND DRINK UTD 12/07 completed Not Available Not Available Not Available OneTouch Verio test strips USE DIRECTED TWICE DAILY active Not Available Not Available No t Available BD Veo Insulin Syringe Ultra-Fin e (half unit) 0.3 mL 31 gauge x 15/64 USE TO ADMINIST ER INSULIN UP TO THREE TIMES DAILY DIRECTED active Not Available Not Available No t Available OneTouch Delica Plus Lancet 33 gauge USE TO TEST BLOOD SUGAR THREE TIMES DAILY active Not Available Not Available No t Available Proair Digihaler 90 mcg/actua tion aerosol powder breath act, sensor Inhale 1 puff every 4 hours by inhalati on route as needed. 06/04 completed Not Available Not Available Not Available Vitals Date Recorded Body height Body mass index (BMI) Body weight Body temperature Heart rate Oxygen saturation Oxygen saturation in Arterial blood by Pulse oximetry Systolic blood pressure Diastolic blood pressure Provider Name and Address Organization Details Last Updated DateTime 3 175.26 cm 30.6 kg/m2 22424.6 2 g 97.2 [degF] 76 /min 96 % 96 % 118 mm[Hg] 70 mm[Hg] Natalie Skelton [place] [employer] [facility] 3 10:04:22 Date Recorded Body weight Body mass index (BMI) Body height Body temperature Heart rate Oxygen saturation Oxygen saturation in Arterial blood by Pulse oximetry Systolic blood pressure Diastolic blood pressure Provider Name and Address Organization Details Last Updated DateTime 3 39626.2 5 g 30 kg/m2 175.26 cm 97.7 [degF] 88 /min 97 % 97 % 168 mm[Hg] 90 mm[Hg] Elise Pabonkelly MAGNUS lara [employer] [facility] [employer] [facility] 3 10:53:20 Date Recorded Body height Body temperature Heart rate Oxygen saturation Oxygen saturation in Arterial blood by Pulse oximetry Body mass index (BMI) Body weight Systolic blood pressure Diastolic blood pressure Provider Name and Address Organization Details Last Updated DateTime 3 175.26 cm 97.2 [degF] 60 /min 96 % 96 % 29.5 kg/m2 84809.4 7 g 130 mm[Hg] 80 mm[Hg] Elise Lottie MAGNUS lara [employer] [facility] [employer] 3 10:28:48 Date Recorded Body weight Body mass index (BMI) Body height Body temperature Heart rate Oxygen saturation Oxygen saturation in Arterial blood by Pulse oximetry Systolic blood pressure Diastolic blood pressure Provider Name and Address Organization Details Last Updated DateTime 4 94492.4 4 g 30.3 kg/m2 175.26 cm 97.6 [degF] 99 /min 97 % 97 % 150 mm[Hg] 90 mm[Hg] Elise Tafoya marco MAGNUS [employer] [facility] [employer] 4 11:24:07 Date Recorded Body height Body mass index (BMI) Body weight Body temperature Oxygen saturation Oxygen saturation in Arterial blood by Pulse oximetry Heart rate Systolic blood pressure Diastolic blood pressure Provider Name and Address Organization Details Last Updated DateTime 4 175.26 cm 30.1 kg/m2 94916.8 4 g 98.6 [degF] 97 % 97 % 104 /min 138 mm[Hg] 84 mm[Hg] Valentine Dooley [facility] [employer] 4 10:04:04 Social History Question Answer Notes LastModified by Organizat ion Details LastModified Time Tobacco Smoking Status Former Smoker Quit 12/2023 MAGNUS Angel [facility] [employer] [facility] 06/22/2024 10:14:18 Do You Have An Advance Directive? No [id number] Information not available 12/31/2022 What Is Your Level Of Alcohol Consumption? None MIGRATION.10262 [id number] Information not available 12/31/2022 What Is Your Level Of Caffeine Consumption? Moderate MIGRATION.73662 49742 Information not available 12/31/2022 How Much Tobacco Do You Chew? None MIGRATION.62312 64324 Information not available 12/31/2022 In The 14 Days Before Symptom Onset, Have You Had Close Contact With A Laboratory-confi rmed COVID-19 While That Case Was Ill? No MIGRATION.26423 13661 Information not available 12/31/2022 In The 14 Days Before Symptom Onset, Have You Had Close Contact With A Person Who Is Under Investigation For COVID-19 While That Person Was Ill? No MIGRATION.29732 90691 Information not available 12/31/2022 Are You Currently Employed? No Information not available 06/22/2024 What Type Of Diet Are You Following? REGULAR MIGRATION.15409 49797 Information not available 12/31/2022 Which Illicit Or Recreational Drugs Have You Used? None MIGRATION.25077 91124 Information not available 12/31/2022 What Is The Highest Grade Or Level Of School You Have Completed Or The Highest Degree You Have Received? [id number] Information not available 06/22/2024 Do You Have An Electrostatic Air Filter? No MIGRATION.43392 50880 Information not available 12/31/2022 What Is Your Occupation? Retired Information not available 06/22/2024 Have There Been Any Changes To Your Family Or Social Situation? No Information not available 06/22/2024 Are There Any Guns Present In Your Home? No MIGRATION.43689 97547 Information not available 12/31/2022 Do You Have A Humidifier? No MIGRATION.81034 84027 Information not available 12/31/2022 Where Do You Live? [place]House MIGRATION.03598 04181 Information not available 12/31/2022 Do You Have Moisture Problems In Your Home? No MIGRATION.17505 46274 Information not available 12/31/2022 What Was The Date Of Your Most Recent Tobacco Screening? 06/22/2024 Information not available 06/22/2024 What Is Your Current Pack Years? 30ormorepackyears MIGRATION.58466 37927 Information not available 12/31/2022 Do You Have Any Pets? Yes MIGRATION.01095 55572 Information not available 12/31/2022 What Is Your Relationship Status? Single Information not available 06/22/2024 Do You Use Your Seat Belt Or Car Seat Routinely? Yes MIGRATION.13947 88905 Information not available 12/31/2022 Do You Have Smoke And Carbon Monoxide Detectors In Your Home? No MIGRATION.71270 39587 Information not available 12/31/2022 At What Age Did You Start Smoking Tobacco? 17 MIGRATION.33005 47091 Information not available 12/31/2022 Are You Passively Exposed To Smoke? Yes MIGRATION.46035 04357 Information not available 12/31/2022 How Much Tobacco Do You Smoke? 1 PPD MIGRATION.73594 71598 Information not available 12/31/2022 Do You Feel Stressed (tense, Restless, Nervous, Or Anxious, Or Unable To Sleep At Night)? [id number] MIGRATION.87485 18567 Information not available 12/31/2022 Do You Use Any Illicit Or Recreational Drugs? No MIGRATION.86240 22429 Information not available 12/31/2022 Do You Use Sunscreen Routinely? No MIGRATION.87706 96215 Information not available 12/31/2022 Has Tobacco Cessation Counseling Been Provided? No Information not available 06/22/2024 On What Date Was Tobacco Cessation Counseling Provided? 03/04/2022 MIGRATION.10209 39752 Information not available 12/31/2022 Have You Recently Traveled Abroad? No MIGRATION.40198 50157 Information not available 12/31/2022 Do You Have Any Dietary Restrictions? No MIGRATION.26891 58910 Information not available 12/31/2022 Do You Or Have You Ever Used Any Other Forms Of Tobacco Or Nicotine? No MIGRATION.15408 13170 Information not available 12/31/2022 Sex: Male Functional Status Question Answer Note LastModified by Organizat ion Details LastModified Time What is your exercise level? None MIGRATION.[id number] Information not available 12/31/2022 Mental Status None recorded. Family History Relationship Description Onset Age of this Age Resolved Age Notes LastModified by Organization Details LastModified Time Father Heart disease MIGRATION.908 [id number] Not available 12/31/2022 20:40:00 Father Essential hypertension MIGRATION.355 [id number] Not available 12/31/2022 20:40:00 Paternal Uncle Heart disease MIGRATION.461 7678984 Not available 12/31/2022 20:40:00 Brother Heart disease MIGRATION.644 [id number] Not available 12/31/2022 20:40:00 Mother Heart disease MIGRATION.496 [id number] Not available 12/31/2022 20:40:00 Mother Essential hypertension MIGRATION.603 0861982 Not available 12/31/2022 20:40:00 Mother Diabetes mellitus MIGRATION.776 [id number] Not available 12/31/2022 20:40:00 Mother Malignant tumor of lung MIGRATION.276 [id number] Not available 12/31/2022 20:40:01 Medical History No medical history recorded. Past Encounters Encounter ID Performer Location Encounter Start Date Encounter Closed Date Diagnosis/Indication Diagnosis SNOMED-CT Code Diagnosis ICD10 Code Diagnosis Note [id number] [facility] [address] [facility] [place] [address] 03/20/2021 00:00:00 03/20/2021 16:31:37 [id number] [facility] [address] [place] [address] 06/14/2021 00:00:00 06/14/2021 11:19:50 [id number] [facility] [address] [place] [address] 06/21/2021 00:00:00 06/21/2021 11:44:29 [id number] [facility] [address] [place] [address] 11/04/2021 00:00:00 11/04/2021 12:45:17 [id number] [facility] [address] [place] [address] 03/04/2022 00:00:00 03/04/2022 17:04:34 [id number] [facility] Pul[facility]olo [address] [address] 03/20/2022 00:00:00 03/20/2022 16:04:55 [id number] [facility] [address] [address] 04/21/2022 00:00:00 04/21/2022 15:50:26 [id number] Chuck Colón MD [facility] Internal [address] [place] [address] 06/04/2023 14:45:42 06/04/2023 15:42:02 Diabetes mellitus 57311782 E11.9 keep watching diet Essential hypertension 03160681 I10 under control with meds Obesity 465455680 E66.9 advised to lose Hyperlipidemia 95532290 E78.5 under control Adult heal th examination 379463006 Z00.00 Colonoscop y- 2019PSA- oe s not want flu injectionC OVID- Does not want Screening for malignant neoplasm of prostate 512987977 Z12.5 Ex-smoker 1888156 Z87.89 1 Solitary n odule of lung 417783211 R91.1 will try to get reports from his pulmonolog ist, encourged him to call them too [id number] Chuck Colón MD [facility] Internal [address] [address] 07/15/2023 09:53:34 07/15/2023 10:46:28 Lung mass 529789175 R91.8 suspicious for cancer, possible metsneed to f/u with pulmonaryw ill find out and call himHe understand s and agree with the plan [id number] Chuck Colón MD [facility] Internal [address] [address] 09/16/2023 10:38:10 09/16/2023 11:39:39 Adult health examination 193276921 Z00.00 Colonoscop y- 2019PSAoe s not want flu injectionC OVID- Does not want Depression screening 171 414427 Z13.31 Palpitations 62596668 R0 0.2 infrequent , watch , call if gets worse, anxiety ? no meds needed Metastatic malignant neoplasm to lung 34487600 C78.00 bone mets, getting chemo [id number] Chuck Colón MD [facility] Internal Med [facility] [address] [place] [address] 10/19/2023 10:18:09 10/19/2023 11:28:43 Diabetes mellitus 65663355 E11.9 keep watching diet Essential hypertension 84605816 I10 under control with meds Obesity 941547286 E66.9 advised to lose Hyperlipidemia 09616741 E78.5 under control, stop simvastati n Adult [facility] th examination 729097193 Z00.00 Colonoscop y- 2019PSA- 2Doe s not want flu injectionC OVID- Does not want Ex-smoker 2430448 Z87.89 1 Metastatic malignant neoplasm to lung 52578178 C78.00 bone mets, getting chemo, no symptoms [id number] Chuck Colón MD [facility] Internal [facility] [address] [facility] [place] [address] 02/18/2024 11:07:24 02/18/2024 12:02:53 Diabetes mellitus 82329902 E11.9 watch diet^ glimepride Essential hypertension 82431566 I10 not under control, ^ amlodipine Obesity 800393292 E66.9 advised to lose Hyperlipidemia 42048277 E78.5 numbers are high, off simvastati n Adult [facility] th examination 067532735 Z00.00 Colonoscop y- 2019PSA- oe s not want flu injectionC OVID- Does not want Ex-smoker 7719436 Z87.89 1 Screening for malignant neoplasm of prostate 238560016 Z12.5 Metastatic malignant neoplasm to lung 41251353 C78.00 bone mets, getting chemo, no symptoms [id number] Chuck Colón MD [facility] Internal [facility] [address] [facility] [place] [address] 06/22/2024 09:40:55 06/22/2024 10:50:40 Diabetes mellitus 66298120 E11.9 check labs, med list given, he will check it at home and will take all meds Essential hypertension 78023630 I10 better Hyperlipidemia 02017509 E78.5 numbers are high, off simvastati n Adult heal th examination 165967094 Z00.00 Colonoscop y- 2019PSA- 02/18/2024 Does not want flu injectionC OVID- Does not want Ex-smoker 3706801 Z87.89 1 Quit in 12/2023 Metastatic malignant neoplasm to lung 72976170 C78.00 bone mets, getting chemo, no pain Health Concerns Section Related Observation LastModified by Organization Detai ls LastModified Time None Recorded Concern Status LastModified by Organization Details LastModified Time None Recorded Advance Directives Directive N: Payers Encounter Date Sequence Insurance Name Policy Number Policy Rojas Covered Member ID Rojas Member ID Guarantor Name 07/15/2023 1 [employer] - AET (PPO) [id number] Kaleb Hammond [id number] Kaleb Hammond 09/16/2023 1 [place] [id number] Kaleb E Stephany [id number] Kaleb E Downs 10/19/2023 1 [place] [id number] Kaleb E Downs [id number] Kaleb E [place] 02/18/2024 1 [place]) [id number] Kaleb E Stephany [id number] 2 Kaleb E Stephany 06/22/2024 1 [place] [id number] Kaleb E Stephany [id number] 2 Kaleb E Stephany Notes Date Note Type Note Provider Name and Address Organization Details Recorded Time 07/15/2023 text/html Patient here tod ay to go over PET scan resultsHe has a mass in the left lower lobe, also has lytic lesions in the spine and pelvis.He has no pain , no sobhas low back pain Had left lung biopsy in 04/23, was benign, with fibrosis, was seen at [facility] by pulmonary after initially seen by Dr KIRKPATRICK.He did not f/u with our office or pulmonary for over a year. All the reports including previous benign biopsy report discussed with him Chuck Colón MD [address] [place] [address], [facility] [address], [place], [address], [place] - [facility] [employer] 07/15/2023 10:44:29 09/16/2023 text/html Pt is here today to follow up on an EKG that his Oncologist ordered 09/10/23. EKG in chart under consult note.He is having palpitations, once in a while, only at night, last time was 2-3 weeks agoDenies any chest pains or SOB but states that he does have some low back pain (tailbone area) He had Lung cancer with mets to the bones, getting chemo, Chuck Colón MD [address] [facility], [place], [address], [facility] 09/16/2023 13:16:47 10/19/2023 text/html Pt is here today for his 4 month follow up Diabetes- Does not do accu checks, A1c was 6.8 ( 0\03/2022)watching diet, Last eye exam was 2021, dueNo hypoglycemia,No neuropathy.Meds- Metformin 500 mg 2 tabs a day , Glimepiride 2mg dailyHTN-on meds, bp under controlMeds- Amlodipine 5 mg daily, Lisinopril 20 mg daily,EX-Smoker- quit IN 2021, smoked 1ppd x 45 yrs ,Hyperlipidemia- on meds, watching diet,Meds- Simvastatin 20 mg daily , will be stoppec COPD- PFT , using alb inhaler prn, no symptoms Metastatic Lung Carcinoma, mets to bones, s/p chemo and RT to bones, going to have more chemo andthen scan Chuck Colón MD [address] [facility], [place], [address], [facility] 10/19/2023 11:09:28 02/18/2024 text/html Pt is here today for his 4 month follow upPT IS NOT FASTINGDiabetes- Accu checks 130-400's, A1c was 8.9( 10/22/2023)bs is the highest in the mornings, admits to not watching his dietLast eye exam was 2021, due,, discussed againNo hypoglycemia,, No neuropathy.Meds- Metformin 500 mg 2 tabs BID , Glimepiride 2mg 2 tabs daily, ( WIIL BE CHANGED )Novolog- Sliding ScaleHTN-on meds, bp under controlMeds- Amlodipine 5 mg daily, Lisinopril 20 mg daily,EX-Smoker- quit IN 2021, smoked 1ppd x 45 yrs ,Hyperlipidemia- on meds, watching diet,Meds- Simvastatin was stoppedCOPD- PFT , not using alb inhaler prn, no symptoms Metastatic Lung Carcinoma, mets to bones, s/p chemo and RT to bones, gets chemo every 3 weeks Chuck Colón MD [address], [address], [place], [address], [facility] 02/18/2024 11:47:27 06/22/2024 text/html Pt is here today for his 4 month follow upPT IS NOT FASTINGDiabetes- Accu checks 135-300's, A1c was 9.2 (02/18/24)bs is the highest in the mornings, trying to watch his dietLast eye exam was 2021, DUE,, discussed againNo hypoglycemia,, No neuropathy.Meds- Metformin 500 mg 2 tabs BID , Glimepiride 4mg bid, ( not sure he takes it )Novolog- Sliding ScaleHTN-on meds, bp under controlMeds- Amlodipine 10 mg daily, Lisinopril 20 mg daily,EX-Smoker- quit IN 12/2023, smoked 1ppd x 45 yrs ,LDCT- 03/14/2022, PET scan 07/02/2023 Hyperlipidemia- on meds, watching diet,Meds- Simvastatin was stoppedCOPD- PFT , not using alb inhaler prn, no symptoms Metastatic Lung Carcinoma, mets to bones, s/p chemo and RT to bones, gets chemo every 3 weeks, Chuck Colón MD [address], [address], [place], [address], [facility] 06/22/2024 10:33:55
--- OUTSIDE RECORDS SUMMARY | 2025-01-19 15:58 | XMS_ITS ---
Author Organization [facility] Address [address] [facility] [place] [address] Care Team Providers Care Ship Mate Name Role Phone Chuck Colón MD Primary Care Provider Patt Hyde MD Unavailable [phone] Active Problems Problem Noted Date Diagnosed Date Uncontrolled type 2 diabetes mellitus 12/31/2023 01/18/2024 Metastatic malignant neoplasm to lung 10/18/2023 10/27/2023 Primary lung adenocarcinoma, left 08/24/2023 Cancer Staging:Pathologic stage from 08/05/2023:Stage IVB(pT1c, pN0, pM1c) - Signed by Patt Hyde MD on 10/02/2023 Metastasis to bone 08/24/2023 Diabetes mellitus 06/02/2023 08/10/2023 Abnormal computerized axial tomography of chest 03/17/2022 08/10/2023 Pruritic rash 03/04/2022 08/10/2023 Type 2 diabetes mellitus without complication 08/10/2023 Essential hypertension 03/20/2021 3 Smoker 03/20/2021 08/10/2023 Well adult health check 03/20/2021 08/10/20 23 Obesity 01/19/2019 08/10/2023 Hyperlipidemia 01/03/2019 08/10/2023 Pulmonary nodule Current Oncology Plans NSC LUNG MET (PEMBROLIZUMAB PEMETREXED CARBOPLATIN) Q42 DAYS* Plan Start Date: 08/31/2023 Plan Provider:Steve Mclain MD Linked Problems Primary lung adenocarcinoma, left (HCC) Treatment Medications Current Day (Day 1 , Cycle 23 - Planned for 02/06/2025) Next Day (Day 1, Cycle 24 - Planned for 02/27/2025) CARBOplatin (Paraplatin) Infusion (AUC Dosing)pembrolizumab (Keytruda) InfusionPEMEtrexed (Alimta) Infusion pembrolizumab (Keytruda) 200 mg in NaCl IV 0.9 % 108 mL infusionPEMEtrexed (Alimta) 1,000 mg in NaCl IV 0.9 % 100 mL infusion pembrolizumab (Keytruda) 200 mg in 0.9% NaCl IV 108 mL infusionPEMEtrexed (Alimta) 1,000 mg in 0.9% NaCl IV 100 mL infusion SUPPORT (ZOLEDRONIC ACID) Q3MOS (ZOMETA)* Plan Start Date:09/06/2023 Plan Provider:Steve Mclain MD Linked Problems Metastasis to bone (HCC) Treatment Medications Current Day (Day 1 , Cycle 8 - Planned for 04/10/2025) Next Day (Day 1, Cycle 9 - Planned for 07/03/2025) No medications scheduled. No medications schedul ed. No medications scheduled. Past Plans No past plan information found. Radiation Treatments * Plan Last Treated On Elapsed Days Fractions Treated Prescribed Fraction Dose Prescribed Total Dose #RTL 12/19/2024 1 of 1 2,000 cGy #TLSpineARC _F 12/02/2024 5 of 5 2,000 cGy #Pelvis_FiF 1 10/02/2023 1 of 1 400 cGy #Pelvis_FiF 10/01/2023 4 of 5 2,000 cGy Reference Point Last Treated On Elapsed Days Session Dose Total Dose PTV_Sum_2000 12/19/2024 2,000 cGy 2,000 cGy PTV_Spine 12/02/2024 400 cGy 2,000 cGy PTV 10/02/2023 400 cGy 2,000 cGy Lifetime Dose Tracking * Chemical Lifetime Dose Automatic Entry Manual Entr y Dose Length Product 3,789.3 mGy-cm 3,789.3 mGy-cm 0 mG y-cm
--- OUTSIDE RECORDS SUMMARY | 2025-01-19 15:58 | XMS_ITS | Continuity of Care Document ---
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 [address] [facility] , [address], [place], [address], [place]. tel:[phone] Family History Family Member Type Diagnosis Age At Onset No Information Payers Payer name Insurance type Covered republican ID Authoriza tigilmer(s) [facility] 09 [id number] Social History Type Description Quantity Date Captured Comments Sex Male Smoking Status No Information Chief Complaint And Reason For Visit No Information Reason For Referral Reason For Referral No Information History Of Present Illness Encounter Date Complaint History Of Prese nt Illness No Information Functional Status Date Functional Assessmen t No Information Instructions Date Instruction Additional Infor mation No Information Assessments Type Assessment Date No Information Patient Care Teams Name Effective Dates (start - stop) Status Members No Information
--- OUTSIDE RECORDS SUMMARY | 2025-01-19 15:58 | XMS_ITS | Encounter Summary ---
Author Organization [facility] Address [address] [facility] [place] [address] Care Team Providers Care Investigation Specialist Name Role Phone Chuck Colón MD Primary Care Provider Patt Hyde MD Unavailable [phone] Encounter Details Date Type Department Care Team (Late st Contact Info) Description 07/16/2023 Telephone [facility] - Pulmonology [address] [place] [address], [place] [address] Murray Martin MD [address] [place] [address] DIV OF PULMONARY/[place] [address] Social History Tobacco Use Types Packs/Day Years Used Date Smoking Tobacco: Every Day Cigarettes Smokeless Tobacco: Never Alcohol Use Standard Drinks/Week Comments Yes 0 (1 standard drink = 0.6 oz pur e alcohol) rare Sex and Gender Information Value Date Recorded Sex Assigned at Male 08/10/2023 1:17 PM CDT Gender Identity Male 08/10/2023 1:17 PM CDT Sexual Orientation Straight 08/10/2023 1: 17 PM CDT documented as of this encounter Functional Status Functional Status Response Date of Assess ment Is person deaf or have serious hearing difficult y? No 04/22/2022 Is person blind or have serious difficulty seein g? No 04/22/2022 Does person have serious dif ficulty walking/climbing stairs? No 04/22/2022 Does person have difficulty dressing/bathing? No 04/22/2022 Does person have difficulty doing errands alone? No 04/22/2022 Cognitive Status Response Date of Assessm ent Does person have difficulty concentrating/remembering/making decisions? No 04/22/2022 documented as of this encounter Miscellaneous Notes * Telephone Encounter - Cherri Adams - 07/16/2023 11:58 AM CDT Current Provider name: Dr. Murray Martin Reason for call: Mr. Kaelb Hammond had visit with his PCP Dr. Chuck Quinn 07/15/23 and she saw a LUNG MASS. Please review the imaging that was sent over to schedule a HAFSA. Patient Call Back number: Please call Daughter Yara [phone] documented in this encounter Plan of Treatment Upcoming Encounters Date Type Department Care Team (Late st Contact Info) Description 02/06/2025 10:00 AM CDT Office Visit [facility] - Hematology/Oncology [address] [place] [address] Patt Hyde MD [address] [place] [address] [place] [address] 02/06/2025 10:30 AM CDT Procedure visit [facility] - Infusion [facility] [place] [address] 02/27/2025 11:15 AM CDT Appointment [facility] PET [address] [place] [address] Patt Hyde MD [address] [place] [address] [place] [address] 02/27/2025 12:15 PM CDT Appointment [facility] PET [address] [place] [address] Patt Hyde MD [address] [place] [address] [place] [address] 04/04/2025 2:30 PM CDT Appointment [facility] MRI [address] [place] [address] Beth Turcios MD [address] [place], [place] [id number] 04/11/2025 11:30 AM CDT Appointment [facility] RAD ONC [address] [place], [place] [id number] Murray Lundberg MD [address] [place] [address] documented as of this encounter Visit Diagnoses Not on filedocumented in this encounter Care Teams Investigation Specialist Relationship Specialty Start Date End Date Chuck Colón MD [address] [address] PCP - General 04/08/22 Patt Hyde MD [address] [facility] [address] [place] [address] Hematology and Oncology 12/27/23 documented as of this encounter
--- OUTSIDE RECORDS SUMMARY | 2025-01-19 15:58 | XMS_ITS | Encounter Summary ---
Author Organization [facility] Health Address [address] [facility] [place] [address] Care Team Providers Care Bale Opener Name Role Phone Chuck Colón MD Primary Care Provider Patt Hyde MD Unavailable [phone] Reason for Visit * Reason Onset Date Comments MEDICATION REFILL 11/14/2024 Encounter Details Date Type Department Care Team (Late st Contact Info) Description 11/14/2024 Refill [facility] - Hematology/Oncology [address] [place] [address] Patt Hyde MD [address] [facility] [address] [place] [address] MEDICATION REFILL Social History Tobacco Use Types Packs/Day Years Used Date Smoking Tobacco: Former Cigarettes Passive Smoke Exposure: Past Smokeless Tobacco: Never Comments:Quit smoking cigare ttes 1 yr ago, and picked up vaping. Has been vaping for at least 1 year Alcohol Use Standard Drinks/Week Comments Yes 1 (1 standard drink = 0.6 oz pur e alcohol) rarely AUDIT-C Answer Date Recorded Q1: How often do you have a drink containing alc ohol? Monthly or less 08/21/2023 Q2: How many drinks containi ng alcohol do you have on a typical day when you are drinking? 1 or 2 08/21/2023 Q3: How often do you have si x or more drinks on one occasion? Never 08/21/2023 Overall Financial Resource Strain (CARDIA) Answe r Date Recorded How hard is it for you to pa y for the very basics like food, housing, medical care, and heating? Not very hard 08/10/2023 PHQ-2 Answer Date Recorded Patient Health Questionnaire-2 Score 0 09/17/2023 [facility] - Occupational Stress Questionnaire Answer Date Recorded Do you feel stress - tense, restless, nervous, or anxious, or unable to sleep at night because your mind is troubled all the time - these days? Not at all 08/10/2023 Hunger Vital Sign Answer Date Recorded Within the past 12 months, y ou worried that your food would run out before you got the money to buy more. Never true 08/10/20 23 Within the past 12 months, t he food you bought just didn't last and you didn't have money to get more. Never true 08/10/2023 PRAPARE - Transportation Answer Date Re corded In the past 12 months, has l ack of transportation kept you from medical appointments or from getting medications? No 07/2023 In the past 12 months, has l ack of transportation kept you from meetings, work, or from getting things needed for daily living? No 08/10/2023 Housing Stability Vital Sign Answer Terrell e Recorded In the last 12 months, was t here a time when you were not able to pay the mortgage or rent on time? No 08/10/2023 In the last 12 months, how many places have you lived? 1 08/10/2023 In the last 12 months, was t here a time when you did not have a steady place to sleep or slept in a skilled nursing (including now)? No 08/10/2023 Education Answer Date Recorded What is the highest level of school you have completed or the highest degree you have received? 11th grade 08/10/2023 Sex and Gender Information Value Date Recorded Sex Assigned at Male 08/10/2023 1:17 PM CDT Gender Identity Male 08/10/2023 1:17 PM CDT Sexual Orientation Straight 08/10/2023 1: 17 PM CDT documented as of this encounter Functional Status Functional Status Response Date of Assess ment Is person deaf or have serious hearing difficult y? No 08/21/2023 Is person blind or have serious difficulty seein g? No 08/21/2023 Does person have serious dif ficulty walking/climbing stairs? No 08/21/2023 Does person have difficulty dressing/bathing? No 08/21/2023 Does person have difficulty doing errands alone? No 08/21/2023 Cognitive Status Response Date of Assessm ent Does person have difficulty concentrating/remembering/making decisions? No 08/21/2023 documented as of this encounter Plan of Treatment Upcoming Encounters Date Type Department Care Team (Late st Contact Info) Description 02/06/2025 10:00 AM CDT Office Visit [facility] - Hematology/Oncology [address] [place] [phone] Patt Hyde MD [address] [address] 02/06/2025 10:30 AM CDT Procedure visit [facility] - Infusion [address] [place] [address] 02/27/2025 11:15 AM CDT Appointment [facility] PET [address] [place] [phone] Patt Hyde MD [address] [address] 02/27/2025 12:15 PM CDT Appointment [facility] PET [address] [place] [address] Patt Hyde MD [address] [address] 04/04/2025 2:30 PM CDT Appointment [facility] MRI [address] [place] [phone] Beth Turcios MD [address] [place] [address] 04/11/2025 11:30 AM CDT Appointment [facility] RAD ONC [address] [place] [address] Murray Lundberg MD [address] [place] [address] documented as of this encounter Visit Diagnoses Diagnosis Cancer associated pain Neoplasm related pain (acute) (chronic) documented in this encounter Care Teams Bale Opener Relationship Specialty Start Date End Date Chuck Colón MD [address] [facility] [address] [place] [address] PCP - General 04/08/22 Patt Hyde MD [address] [address] Hematology and Oncology 12/27/23 documented as of this encounter
--- OUTSIDE RECORDS SUMMARY | 2025-01-19 15:58 | XMS_ITS | Clinical Summary ---
Author Organization [facility] Address [address] 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 This disclosure is being madepursuant to the Care Everywhere program and may not contain all information available regarding this patient. Last updated 18.[facility] Allergies Active Allergy Reactions Criticality Noted Date Comments Penicillins Rash,Itching Medium 04/17/2022 Medications * Be aware that medications may not be up to date on this document. Alwaysverify current medications with the patient. Medication Sig Dispensed Refills Start Date End Date Status amLODIPine (NORVASC) 5 MG tablet Take 1 (one) tablet by mouth once daily 03/24/2022 Active glimepiride (AMARYL) 2 MG tablet Take 1 (one) tablet by mouth once daily 03/04/2022 Active lisinopril (PRINIVIL; ZESTRIL) 20 MG tablet Take 1 (one) tablet by mouth once daily 03/24/2022 Active metFORMIN ER 24hr (GLUCOPHAGE XR) 500 MG tablet Take 2 (two) tablets by mouth 2 times daily 03/22/2022 Active insulin aspart (NovoLOG) vial Inject 1,000 (one thousand) Units subcutaneously as directed Novolog U 100 Insulin VL 10 ML (Titus) 09/09/2024 Active Calcium Carb-Cholecalci ferol 500-15 MG-MCGIndicatio ns:Prevention of Bone Mineral Density Loss Take 1 tablet by mouth once daily Reasons: Prevention of Bone Mineral Density Loss 90 tablet 2 10/10/2024 Active morphine CR 12hr (MS Contin) 15 MG tabletIndicatio ns:Pain due to Malignant Neoplastic Disease Take 1 (one) tablet by mouth every 12 hours Reasons: Cancer Pain 14 tablet 10/27/2024 Active folic acid (Folvite) 1 MG tabletIndicatio ns:CHEMOTHERAPY Take 1 (one) tablet by mouth once daily Reasons: CHEMOTHERAPY 90 tablet 3 12/12/2024 Active HYDROcodone-paty taminophen (Hazelhurst) 5-325 MG tabletIndicatio ns:Cancer associated pain Take 1 (one) tablet by mouth every 6 hours as needed for Pain 60 tablet 01/12/2025 Active polyethylene glycol 3350 (Miralax) 17 GM/SCOOP powder Take 17 (seventeen) g by mouth once daily as needed for Constipation 10/27/2024 5 Discontinue d(List Clean-Up) docusate sodium (Colace) 50 MG capsule Take 1 (one) capsule by mouth once daily 32 capsule 1 10/27/2024 5 Discontinue d(List Clean-Up) HYDROcodone-paty taminophen (Hazelhurst) 5-325 MG tabletIndicatio ns:Cancer associated pain Take 1 (one) tablet by mouth every 6 hours as needed for Pain 60 tablet 12/12/2024 5 Discontinue d(Reorder) Active Problems Problem Noted Date Diagnosed Date [...] 01/19/2019 08/10/2023 Hyperlipidemia 01/03/2019 08/10/2023 Pulmonary nodule Encounters Date Type Department Care Team Description 01/16/2025 10:30 AM CDT Procedure visit [facility] - Infusion [address] [place] [address] Primary lung adenocarcinoma, left ; Metastasis to bone 01/16/2025 10:00 AM CDT Office Visit [facility] - Hematology/Oncolog y [address] [place] [address] Benita Bryan, PHOTOGRAPH DEVELOPER-SOFTWARE ENGINEER MOBILE Cancer associated pain (Primary Dx); Non-small cell cancer of left lung; Type 2 diabetes mellitus without complication, without long-term current use of insulin 01/16/2025 Travel 01/13/2025 Orders Only [facility] - Hematology/Oncolog y [address] [place] [address] Benita Bryan, PHOTOGRAPH DEVELOPER-SOFTWARE ENGINEER MOBILE 01/11/2025 Refill [facility] - Hematology/Oncolog y [address] [place] [address] Patt Hyde MD MEDICATION REFILL 12/26/2024 11:30 AM SCOOTER MECHANIC Procedure visit [facility]fusion [address] [place] [address] Primary lung adenocarcinoma, left 12/26/2024 11:00 AM SCOOTER MECHANIC Office [facility]ology[facility]Oncolog y [address] [place] [address] Patt Hyde MD Non-small cell cancer of left lung (Primary Dx); Cancer associated pain; Encounter for antineoplastic immunotherapy; Type 2 diabetes mellitus without complication, without long-term current use of insulin 12/19/2024 1:12 PM SCOOTER MECHANIC - 12/19/2024 11:59 PM SCOOTER MECHANIC Hospital Encounter [facility] RAD ONC [address] [place] [address] Beth Turcios MD Discharge Disposition: Home or Self Care 12/19/2024 12:56 PM SCOOTER MECHANIC - 12/19/2024 1:11 PM SCOOTER MECHANIC Hospital Encounter [facility] RAD ONC [address] [place] [address] Beth Turcios MD Discharge Disposition: Home or Self Care 12/15/2024 Refill [facility] - Hematology/Oncolog y [address] [place] [phone] Patt Hyde MD MEDICATION REFILL 12/12/2024 Refill [facility] - Hematology/Oncolog y [address] [place] [phone] Patt Hyde MD MEDICATION REFILL 12/09/2024 Orders Only [facility] - Hematology/Oncolog y [address] [place] [address] Benita Bryan APRN-SOFTWARE ENGINEER MOBILE 12/07/2024 12:16 PM SCOOTER MECHANIC - 12/07/2024 11:59 PM SCOOTER MECHANIC Hospital Encounter [facility] RAD ONC [address] [place] [phone] Beth Turcios MD Discharge Disposition: Home or Self Care 12/07/2024 12:16 PM SCOOTER MECHANIC - 12/07/2024 11:59 PM SCOOTER MECHANIC Hospital Encounter [facility] RAD ONC [address] [place] [address] Beth Turcios MD Discharge Disposition: Home or Self Care 12/07/2024 Orders Only [facility] Infusion [address] [place] [address] Cinthya Matthews, GabeD 12/07/2024 Orders Only [facility] - Infusion [address] [place] [phone] Cinthya Matthews, Aamdou 12/07/2024 Orders Only [facility] ONC [address] [place] [address] Beth Turcios MD Metastasis to brain ; Primary lung adenocarcinoma, left 12/05/2024 Telephone [facility] - Hematology/Oncolog y [address] [place] [address] Patt Hyde MD Imaging Results 12/05/2024 Telephone [facility] [address] [place] [address] Claudette Wade, LEROY Future Appointment 12/04/2024 6:21 PM SCOOTER MECHANIC - 12/04/2024 11:59 PM SCOOTER MECHANIC Hospital Encounter [facility] MRI [address] [place] [address] Patt Hyde MD Discharge Disposition: Home or Self Care 12/02/2024 12:32 PM SCOOTER MECHANIC - 12/02/2024 11:59 PM SCOOTER MECHANIC Hospital Encounter [facility] RAD ONC [address] [place] [address] Beth Turcios MD Discharge Disposition: Home or Self Care 12/01/2024 1:00 PM SCOOTER MECHANIC - 12/01/2024 11:59 PM SCOOTER MECHANIC Hospital Encounter [facility] RAD ONC [address] [place] [address] Beth Turcios MD Discharge Disposition: Home or Self Care 2024 1:00 PM SCOOTER MECHANIC - 2024 11:59 PM SCOOTER MECHANIC Hospital Encounter [facility] RAD ONC [address] [place] [address] Beth Turcios MD Discharge Disposition: Home or Self Care 2024 12:37 PM SCOOTER MECHANIC - 2024 12:59 PM SCOOTER MECHANIC Hospital Encounter [facility] RAD ONC [address] [place] [address] Beth Turcios MD Discharge Disposition: Home or Self Care 11/29/2024 12:45 PM SCOOTER MECHANIC - 11/29/2024 11:59 PM SCOOTER MECHANIC Hospital Encounter [facility] RAD ONC [address] [place] [address] Beth Turcios MD Discharge Disposition: Home or Self Care 11/29/2024 Telephone [facility] - Hematology/Oncolog y [address] [place] [address] Patt Hyde MD Imaging Results 11/28/2024 12:26 PM SCOOTER MECHANIC - 11/28/2024 11:59 PM SCOOTER MECHANIC Hospital Encounter [facility] RAD ONC [address] [place] [phone] Beth Turcios MD Discharge Disposition: Home or Self Care 11/28/2024 9:22 AM SCOOTER MECHANIC - 11/28/2024 12:25 PM SCOOTER MECHANIC Hospital Encounter [facility] CAT SCAN [address] [place] [address] Patt Hyde MD Discharge Disposition: Home or Self Care 11/28/2024 Oncology Treatment Summary [facility]C [address] [place] [phone] Unknown, Provider 11/28/2024 Travel 11/17/2024 11:25 AM SCOOTER MECHANIC - 11/17/2024 11:59 PM SCOOTER MECHANIC Hospital Encounter [facility] RAD ONC [address] [place] [phone] Beth Turcios MD Discharge Disposition: Home or Self Care 11/17/2024 11:25 AM SCOOTER MECHANIC - 11/17/2024 11:59 PM SCOOTER MECHANIC Hospital Encounter [facility] RAD ONC [address] [place] [phone] Beth Turcios MD Discharge Disposition: Home or Self Care 11/16/2024 Telephone [facility] - Hematology/Oncolog y [address] [place] [address] Patt Hyde MD Medication Prior Auth Request 11/15/2024 Telephone [facility] - Hematology/Oncolog y [address] [place] [address] Patt Hyde MD Medication Prior Auth Request 11/15/2024 Telephone [facility] - Hematology/Oncolog y [address] [place] [address] Patt Hyde MD Medication Prior Auth Request 11/15/2024 Refill [facility] - Hematology/Oncolog y [address] [place] [address] Patt Hyde MD MEDICATION REFILL 11/15/2024 Telephone [facility] ONC [address] [place] [address] Claudette Wade, RN Future Appointment 11/15/2024 Orders Only [facility] ONC [address] [place] [address] Beth Turcios MD Metastasis to bone 11/14/2024 Refill [facility] - Hematology/Oncolog y [address] [place] [address] Patt Hyde MD MEDICATION REFILL 11/14/2024 Telephone [facility] ONC [address] [place] [address] Claudette Wade, RN Future Appointment 11/14/2024 Refill [facility] - Hematology/Oncolog y [address] [place] [address] Patt Hyde MD MEDICATION REFILL 11/10/2024 Telephone [facility] - Hematology/Oncolog y [address] [place] [address] Benita Bryan, PHOTOGRAPH DEVELOPER-SOFTWARE ENGINEER MOBILE Imaging 11/05/2024 9:59 AM SCOOTER MECHANIC - 11/05/2024 11:59 PM SCOOTER MECHANIC Hospital Encounter [facility] MRI [address] [place] [address] Benita Bryan, PHOTOGRAPH DEVELOPER-SOFTWARE ENGINEER MOBILE Discharge Disposition: Home or Self Care 11/05/2024 9:58 AM SCOOTER MECHANIC Hospital Encounter [facility] MRI [address] [place] [address] Benita Bryan, PHOTOGRAPH DEVELOPER-SOFTWARE ENGINEER MOBILE Discharge Disposition: Home or Self Care 10/27/2024 9:45 AM SCOOTER MECHANIC Procedure visit [facility] - Infusion [address] [place] [address] Primary lung adenocarcinoma, left 10/27/2024 9:20 AM SCOOTER MECHANIC [facility]olog [facility] [address] [place] [address] Bryan, Benita, PHOTOGRAPH DEVELOPER-SOFTWARE ENGINEER MOBILE Acute bilateral low back pain without sciatica (Primary Dx); Malignant neoplasm metastatic to left lung; Metastasis to bone; Drug-induced constipation 10/27/2024 Refill [facility] - Hematology/Oncolog y [address] [place] [address] Bryan, Benita, PHOTOGRAPH DEVELOPER-SOFTWARE ENGINEER MOBILE MEDICATION REFILL 10/24/2024 Orders Only [facility] - Hematology/Oncolog y [address] [place] [address] Patt Hyde MD High risk medications (not anticoagulants) long-term use; Malignant neoplasm metastatic to left lung 10/21/2024 Orders Only [facility] - Hematology/Oncolog y [address] [place] [address] Bryan, Benita, PHOTOGRAPH DEVELOPER-SOFTWARE ENGINEER MOBILE from Last 3 Months Family History Medical History Relation Name Comments CAD (Coronary Artery Disease) Father 47 Relation Name Status Comments Brother 56 Alive Daughter Yara-33 Alive Father 47 Maternal Grandfather Maternal Grandmother Mother 67 Paternal Grandfather Paternal Grandmother Sister 66 Alive Son 1 Nico-37 Alive Son 2 Jesus-28 Alive Son 3 Priyank-25 Alive Son 4 Herber-22 Alive Social History Tobacco Use Types Packs/Day Years Used Date Smoking Tobacco: Former Cigarettes Passive Smoke Exposure: Past Smokeless Tobacco: Never Tobacco Cessation:Counseling Given: No Comments:Quit smoking cigarettes 1 yr ago, and picked up vaping. [...] Recorded Patient Health Questionnaire-2 Score 0 09/17/2023 [facility] - Occupational Stress [...] place to sleep or slept in a residential (including now)? No 08/10/2023 Education Answer Date Recorded What is the highest level of school you have completed or the highest degree you have received? 11th grade 08/10/2023 Sex and Gender Information Value Date Recorded Sex Assigned at Male 08/10/2023 1:17 PM CDT Gender Identity Male 08/10/2023 1:17 PM CDT Sexual Orientation Straight 08/10/2023 1: 17 PM CDT Last Filed Vital Signs Vital Sign Reading Time Taken Comments Blood Pressure 150/82 01/16/2025 9:45 AM CDT Pulse 68 01/16/2025 9:45 AM CDT Temperature 36.7 C (98.1 F) 01/16/2025 9:45 AM CDT Respiratory Rate 14 01/16/2025 9:45 AM CDT Oxygen Saturation 96% 01/16/2025 9:45 AM CDT Inhaled Oxygen Concentration - - Weight 96.8 kg (213 lb 6.4 oz) 01/16/2025 9:45 A M CDT Height 175.3 cm (5' 9 ) 01/16/2025 9:45 AM CDT Body Mass Index 31.51 01/16/2025 9:45 AM CDT Plan of Treatment Upcoming Encounters Date Type Department Care Team (Late st Contact Info) Description 02/06/2025 10:00 AM CDT Office Visit [facility] - Hematology/Oncology [address] [place] [address] Patt Hyde MD [address] [address] 02/06/2025 10:30 AM CDT Procedure visit [facility] - Infusion [facility] [place] [address] 02/27/2025 11:15 AM CDT Appointment [facility] PET [address] [place] [address] Patt Hyde MD [address] [place] [address] 02/27/2025 12:15 PM CDT Appointment [facility] PET [address] [place] [address] Patt Hyde MD [address] [place] [address] 04/04/2025 2:30 PM CDT Appointment [facility] MRI [address] [place] [address] Beth Turcios MD [address] [place] [address] 04/11/2025 11:30 AM CDT Appointment [facility] RAD ONC [address] [place] [address] Murray Lundberg MD [address] [place] [address] Health Maintenance Due Date Last Done Comments COLOGUARD (AGES 45-75) - COLON CA SCREENING 1962 COLON MONITORING 1962 COLONOSCOPY - COLON CA SCREENING 1962 CT COLONOGRAPHY - COLON CA SCREENING 1962 Colorectal Cancer Screening 1962 FIT - COLON CA SCREENING 1962 FLEX SIG - COLON CA SCREENING 1962 HIV SCREENING 1977 HEPATITIS C SCREENING 11/25/1980 DTAP/TDAP/TD VACCINES (1 - Tdap) 1981 PNEUMOCOCCAL VACCINE 50+ (1 of 2 - PCV) 1981 DIABETES-STATIN 2002 ZOSTER VACCINE (1 of 2) 2012 Respiratory Syncytial Virus (RSV) Vaccine Pt: or over 60 yrs (1 - Risk 60-74 years 1-dose series) 2022 DIABETES RETINOPATHY SCREENING 08/10/2023 DIABETES-FOOT EXAM WITH MONOFILAMENT 08/10/2023 DIABETES-HGB A1C 08/10/2023 COVID-19 VACCINE ( - 2023- season) 2024 INFLUENZA VACCINE (#1) 2024 DEPRESSION SCREENING 11/02/2024 08/10/2023 DIABETES - URINE PROTEIN SCREENING 11/02/2024 DIABETES-SERUM CREATININE 01/13/20262024, 12/23/2024, 12/09/2024, Additional history exists HEPATITIS B VACCINE Aged Out No longe r eligible based on patient's age to complete this topic HIB VACCINE Aged Out No longer eligi ble based on patient's age to complete this topic HPV VACCINE Aged Out No longer eligi ble based on patient's age to complete this topic MENINGOCOCCAL (Group B) VACCINE SHARED DECISION-MAKING Aged Out No longer eligible based on patient's age to complete this topic MENINGOCOCCAL GROUPS A/C/Y/W VACCINE Aged Out No longer eligible based on patient's age to complete this topic Procedures Procedure Name Priority Date/Time Associated Diagnosis Comments COMPREHENSIVE METABOLIC PANEL 01/13/2025 9:08 AM CDT TSH REFLEX FREE T4 01/13/2025 9: 07 AM CDT CBC W AUTO DIFFERENTIAL 01/13/2025 9:06 AM CDT TSH REFLEX FREE T4 12/23/2024 9: 42 AM SCOOTER MECHANIC CBC W AUTO DIFFERENTIAL 12/23/2024 9:42 AM SCOOTER MECHANIC COMPREHENSIVE METABOLIC PANEL 12/23/2024 9:42 AM SCOOTER MECHANIC RAD ONC ARIA SESSION SUMMARY Routine 12/19/2024 1:30 PM SCOOTER MECHANIC TSH REFLEX FREE T4 12/09/2024 12 :34 PM SCOOTER MECHANIC CBC W AUTO DIFFERENTIAL 12/09/2024 12:34 PM SCOOTER MECHANIC COMPREHENSIVE METABOLIC PANEL 12/09/2024 12:34 PM SCOOTER MECHANIC MRI BRAIN WWO CONTRAST Routine 7:17 PM SCOOTER MECHANIC Malignant neoplasm metastatic to left lung RAD ONC ARIA SESSION SUMMARY Routine 12/02/2024 1:09 PM SCOOTER MECHANIC RAD ONC ARIA SESSION SUMMARY Routine 12/01/2024 1:17 PM SCOOTER MECHANIC RAD ONC ARIA SESSION SUMMARY Routine 2024 1:12 PM SCOOTER MECHANIC RAD ONC ARIA SESSION SUMMARY Routine 11/29/2024 1:21 PM SCOOTER MECHANIC RAD ONC ARIA SESSION SUMMARY Routine 11/28/2024 1:[address] CHEST ABDOMEN PELVIS W CONT Routine 11/28/2024 10:17 AM SCOOTER MECHANIC Primary lung adenocarcinoma, left CREATININE - POCT INTERFACED Routine 11/28/2024 10:06 AM SCOOTER MECHANIC MRI PELVIS WWO CONTRAST Routine 11/05/2024 12:41 PM SCOOTER MECHANIC Acute bilateral low back pain without sciatica Malignant neoplasm metastatic to left lung MRI LUMBAR SPINE WWO CONTRAST Routine 11/05/2024 12:40 PM SCOOTER MECHANIC Acute bilateral low back pain without sciatica Malignant neoplasm metastatic to left lung CBC W AUTO DIFFERENTIAL Routine 10/24/2024 10:01 AM SCOOTER MECHANIC Malignant neoplasm metastatic to left lung COMPREHENSIVE METABOLIC PANEL Routine 10/24/2024 10:01 AM SCOOTER MECHANIC Malignant neoplasm metastatic to left lung TSH REFLEX FREE T4 Routine 10/24/2024 10 :01 AM SCOOTER MECHANIC High risk medications (not anticoagulants) long-term use from Last 3 Months Results * (ABNORMAL) COMPREHENSIVE METABOLIC PANEL (01/13/2025 9:08 AM CDT) Only the most recent of4 resultswithin the time period is included. Glucose 208(H) 65 - 99 mg/dL [facility] Comment: Fasting reference interval For someone without known diabetes, a glucose value >125 mg/dL indicates that they may have diabetes and this should be confirmed with a follow-up test. BUN 16 7 - 25 mg/dL [facility] Creatinine 0.99 0.70 - 1.35 mg/dL [facility] eGFR by Cystatin C 86 > OR = 60 mL/min/1. 73m2 [facility] BUN/Creatinine Ratio SEE NOTE: 6 - 22 (calc) [facility] Comment: Not Reported: BUN and Creatinine are within reference range. Sodium 137 135 - 146 mmol/L [facility] Potassium 4.5 3.5 - 5.3 mmol/L [facility] Chloride 102 98 - 110 mmol/L [facility] CO2 28 20 - 32 mmol/L [facility] Calcium 9.4 8.6 - 10.3 mg/dL [facility] Protein Total 6.3 6.1 - 8.1 g/dL [facility] Albumin 4.1 3.6 - 5.1 g/dL [facility] Globulin Total 2.2 1.9 - 3.7 g/dL (calc) [facility] Albumin/Globulin Ratio 1.9 1.0 - 2.5 (calc) [facility] Bilirubin Total 0.4 0.2 - 1.2 mg/dL [facility] Alkaline Phosphatase 79 35 - 144 U/L [facility] AST 10 10 - 35 U/L [facility] ALT 16 9 - 46 U/L [facility] Comment: REPORT COMMENT: FASTING:YES Test Performed at: [address] [address] FLORENCIO YBARRA MD 01/13/2025 9:08 AM CDT 01/13/2025 9:08 AM CDT [facility] - CHEMISTRY ORD ERABLES Performing Organization Address [facility] Co de Phone Number [address] [address] * TSH REFLEX FREE T4 (01/13/2025 9:07 AM CDT) Only the most recent of4 resultswithin the time period is included. Pathologist [facility] TSH with Reflex FT4 0.65 0.40 - 4.50 mIU/L [facility] Comment: REPORT COMMENT: FASTING:YES Test Performed at: [address] [address] FLORENCIO YBARRA MD 01/13/2025 9:07 AM CDT 01/13/2025 9:07 AM CDT [facility] - CHEMISTRY ORD ERABLES Performing Organization Address City/[facility] Co de Phone Number [address] [address] * (ABNORMAL) CBC WITH DIFFERENTIAL (01/13/2025 9:06 AM CDT) Only the most recent of4 resultswithin the time period is included. White Blood Cell Count 6.7 3.8 - 10.8 Thousand/ uL [facility] RBC 4.87 4.20 - 5.80 Million/u L [facility] Hemoglobin 15.0 13.2 - 17.1 g/dL [facility] Hematocrit 45.2 38.5 - 50.0 % [facility] MCV 92.8 80.0 - 100.0 fL [facility] MCH 30.8 27.0 - 33.0 pg [facility] MCHC 33.2 32.0 - 36.0 g/dL [facility] Comment: For adults, a slight decrease in the calculated MCHC value (in the range of 30 to 32 g/dL) is most likely not clinically significant; however, it should be interpreted with caution in correlation with other red cell parameters and the patient's clinical condition. RDW 13.2 11.0 - 15.0 % [facility] Platelet Count 201 140 - 400 Thousand/ uL [facility] MPV 12.2 7.5 - 12.5 fL [facility] Neutrophil Absolute 5333 1500 - 7800 cells/uL [facility] Lymphocytes Absolute 750(L) 850 - 3900 cells/uL [facility] Absolute Monocytes 476 200 - 950 cells/uL [facility] Eosinophils Absolute 101 15 - 500 cells/uL [facility] Basophils Absolute 40 0 - 200 cells/uL [facility] Granulocytes % 79.6 % [facility] Lymphocytes % 11.2 % [facility] Monocytes % 7.1 % [facility] Eosinophils % 1.5 % [facility] Basophils % 0.6 % [facility] Comment: REPORT COMMENT: FASTING:YES Test Performed at: [facility] [address] FLORENCIO YBARRA MD 01/13/2025 9:06 AM CDT 01/13/2025 9:06 AM CDT [facility] - HEMATOLOGY OR DERABLES [address] [address] * Rad Onc Aria Session Summary (12/19/2024 1:30 PM SCOOTER MECHANIC) Course ID [id number] RAD ONC TREATMENT Course First Treatment Date 12/19/2024 1:19 PM RAD ONC TREATMENT Reference Point ID [id number] RAD ONC TREATMENT Reference Point Dosage Given to Date 20 Gy RAD ONC TREATMENT Reference Point Session Dosage Given 20 Gy RAD ONC TREATMENT Plan ID #RTL RAD ONC TREATMENT Plan Fractions Treated to Date 1 RAD ONC TREATMENT Plan Total Fractions Prescribed 1 RAD ONC TREATMENT Plan Total Prescribed Dose 2000 cGy RAD ONC TREATMENT 12/19/2024 1:30 PM SCOOTER MECHANIC Provider Unknown RADIATION ONCOLOGY O RDERABLES RAD ONC TREATMENT * MRI Brain Wwo Contrast (12/04/2024 7:17 PM SCOOTER MECHANIC) Anatomical Region Laterality Modality Head Magnetic Resonan ce 12/05/2024 9:22 AM SCOOTER MECHANIC Impressions 12/05/2024 11:58 AM SCOOTER MECHANIC IMPRESSION: 1.There are 2 enhancing lesions in the right temporal lobe, concerning for intracranial metastasis. Continued attention on follow-up is recommended. 2.Mild paranasal sinus sinus disease as outlined. Report dictated by Hong Leung MD Findings were communicated with DrMacy Physician: Patt Hyde by Dr. Zuniga on 12/05/2024 at 11:57 AM. I, Christopher Zuniga MD have personally reviewed and interpreted this examination/study. > Interpreting Provider: Christopher Zuniga MD on 12/05/2024 11:58 AM Narrative 12/05/2024 11:58 AM SCOOTER MECHANIC PROCEDURE: MRI BRAIN WWO CONTRAST, DATE/TIME OF EXAM: 12/04/2024 7:17 PM, LOCATION [facility] INDICATION: C78.02: Malignant neoplasm metastatic to left lung (HCC) ADDITIONAL CLINICAL INFORMATION: Ordering Provider Reason For Exam: Metastatic lung cancer, restaging Technologist Note: Does the patient have a pacemaker or defibrillator?->No Does the patient have metal implants or stents?->No Additional: None. EXAMINATION: Magnetic resonance imaging (MRI) of the brain without and with contrast CONTRAST: GADOBUTROL 1 MMOL/ML IV [facility] SO:9.5 mL TECHNIQUE: MRI of the brain was performed prior to and following the uneventful administration of 9.5 mL intravenous gadolinium contrast according to a tumor protocol. COMPARISON: MRI of the brain from 08/23/2023. FINDINGS: No evidence of acute or chronic hemorrhage is identified. No evidence of acute cerebral infarction is seen. There is mild cerebral volume loss with associated ex vacuo ventricular dilatation. No mass effect or midline shift is seen. Periventricular, subcortical, and suspected faint pontine white matter FLAIR hyperintensities likely represent sequelae of chronic small vessel ischemic disease. There is a rim-enhancing 0.6 x 0.5 cm T2 FLAIR hyperintense lesion within the right temporal lobe (series 19 image 81). There is an adjacent, additional larger irregular lesion lateral to this measuring approximately 0.7 x 1.2 x 1.4 cm (series 19 image 81 and series 17 image 15) with surrounding edema that was much less conspicuous on the prior. In retrospect, there is faint enhancement on the prior at lateral right temporal lobe, adjacent to the site of the more anterior lesion however hardly seen due to motion artifacts on the prior. The corpus callosum and sella appear normal. The posterior fossa, brainstem, and craniocervical junction appear grossly normal. The visualized portions of the orbits appear grossly unremarkable. Mild paranasal sinus disease. Redemonstrated small mucous retention cyst in the left maxillary sinus. There is mild opacification in the ethmoid air cells and minimal mucosal thickening in the remaining paranasal sinuses. Small bilateral mastoid effusions. Normal flow voids are demonstrated in the carotid arteries and basilar artery. The calvarium and visualized cervical spine appear normal. Procedure Note Christopher Zuniga MD - 12/05/2024 PROCEDURE: MRI BRAIN WWO CONTRAST, DATE/TIME OF EXAM: 12/04/2024 7:17PM, LOCATION [facility] INDICATION: C78.02: Malignant neoplasm metastatic to left lung (HCC) ADDITIONAL CLINICAL INFORMATION: Ordering Provider Reason For Exam: Metastatic lung cancer, restaging Technologist Note: Does the patient have a pacemaker ordefibrillator?->No Does the patient have metal implants or stents?->No Additional: None. EXAMINATION: Magnetic resonance imaging (MRI) of the brain without andwith contrast CONTRAST: GADOBUTROL 1 MMOL/ML IV SSM SO:9.5 mL TECHNIQUE: MRI of the brain was performed prior to and following the uneventful administration of 9.5 mL intravenous gadolinium contrast according to a tumor protocol. COMPARISON: MRI of the brain from 08/23/2023. FINDINGS: No evidence of acute or chronic hemorrhage is identified. No evidence of acute cerebral infarction is seen. There is mild cerebral volume losswith associated ex vacuo ventricular dilatation. No mass effect or midlineshift is seen. Periventricular, subcortical, and suspected faint pontine white matter FLAIR hyperintensities likely represent sequelae of chronic small vessel ischemic disease. There is a rim-enhancing 0.6 x 0.5 cm T2 FLAIR hyperintense lesion within the right temporal lobe (series 19 image 81). There is an adjacent, additional larger irregular lesion lateral to this measuring approximately 0.7 x 1.2 x 1.4 cm (series 19 image 81 andseries 17 image 15) with surrounding edema that was much less conspicuous onthe prior. In retrospect, there is faint enhancement on the prior at lateral right temporal lobe, adjacent to the site of the more anterior lesion however hardly seen due to motion artifacts on the prior. The corpus callosum and sella appear normal. The posterior fossa, brainstem, and craniocervical junction appear grossly normal. The visualized portions of the orbits appear grossly unremarkable. Mild paranasal sinus disease. Redemonstrated small mucous retention cyst inthe left maxillary sinus. There is mild opacification in the ethmoid aircells and minimal mucosal thickening in the remaining paranasal sinuses. Small bilateral mastoid effusions. Normal flow voids are demonstrated in the carotid arteries and basilar artery. The calvarium and visualizedcervical spine appear normal. IMPRESSION: 1.There are 2 enhancing lesions in the right temporal lobe, concerningfor intracranial metastasis. Continued attention on follow-up isrecommended. 2.Mild paranasal sinus sinus disease as outlined. Report dictated by Hong Leung MD Findings were communicated with Physician: Patt Hyde by on 12/05/2024 at 11:57 AM. I, Christopher Zuniga MD have personally reviewed and interpretedthis examination/study. > Interpreting Provider: Christopher Zuniga MD on 12/05/2024 11:58 AM Patt Hyde MD MR ORDERABLES * Rad Onc Aria Session Summary (12/02/2024 1:09 PM SCOOTER MECHANIC) Course ID C2:TL_Spin e RAD ONC TREATMENT Course First Treatment Date 11/28/2024 1:23 PM RAD ONC TREATMENT Reference Point ID [email or web address] RAD ONC TREATMENT Reference Point Dosage Given to Date 20 Gy RAD ONC TREATMENT Reference Point Session Dosage Given 4 Gy RAD ONC TREATMENT Plan ID #[id number] C_F RAD ONC TREATMENT Plan Fractions Treated to Date 5 RAD ONC TREATMENT Plan Total Fractions Prescribed 5 RAD ONC TREATMENT Plan Total Prescribed Dose 2000 cGy RAD ONC TREATMENT 12/02/2024 1:09 PM SCOOTER MECHANIC Provider Unknown RADIATION ONCOLOGY O RDERABLES RAD ONC TREATMENT * Rad Onc Aria Session Summary (12/01/2024 1:17 PM SCOOTER MECHANIC) Course ID C2:TL_Spin e RAD ONC TREATMENT Course First Treatment Date 11/28/2024 1:23 PM RAD ONC TREATMENT Reference Point ID [email or web address] RAD ONC TREATMENT Reference Point Dosage Given to Date 16 Gy RAD ONC TREATMENT Reference Point Session Dosage Given 4 Gy RAD ONC TREATMENT Plan ID #[id number] C_F RAD ONC TREATMENT Plan Fractions Treated to Date 4 RAD ONC TREATMENT Plan Total Fractions Prescribed 5 RAD ONC TREATMENT Plan Total Prescribed Dose 2000 cGy RAD ONC TREATMENT 12/01/2024 1:17 PM SCOOTER MECHANIC Provider Unknown RADIATION ONCOLOGY O RDERABLES RAD ONC TREATMENT * Rad Onc Aria Session Summary (2024 1:12 PM SCOOTER MECHANIC) Course ID C2:TL_Spin e RAD ONC TREATMENT Course First Treatment Date 11/28/2024 1:23 PM RAD ONC TREATMENT Reference Point ID [email or web address] RAD ONC TREATMENT Reference Point Dosage Given to Date 12 Gy RAD ONC TREATMENT Reference Point Session Dosage Given 4 Gy RAD ONC TREATMENT Plan ID #[email or web address] C_F RAD ONC TREATMENT Plan Fractions Treated to Date 3 RAD ONC TREATMENT Plan Total Fractions Prescribed 5 RAD ONC TREATMENT Plan Total Prescribed Dose 2000 cGy RAD ONC TREATMENT 2024 1:12 PM SCOOTER MECHANIC Provider Unknown RADIATION ONCOLOGY O RDERABLES RAD ONC TREATMENT * Rad Onc Aria Session Summary (11/29/2024 1:21 PM SCOOTER MECHANIC) Course ID C2:TL_Spin e RAD ONC TREATMENT Course First Treatment Date 11/28/2024 1:23 PM RAD ONC TREATMENT Reference Point ID [email or web address] RAD ONC TREATMENT Reference Point Dosage Given to Date 8 Gy RAD ONC TREATMENT Reference Point Session Dosage Given 4 Gy RAD ONC TREATMENT Plan ID #[email or web address] C_F RAD ONC TREATMENT Plan Fractions Treated to Date 2 RAD ONC TREATMENT Plan Total Fractions Prescribed 5 RAD ONC TREATMENT Plan Total Prescribed Dose 2000 cGy RAD ONC TREATMENT 11/29/2024 1:21 PM SCOOTER MECHANIC Provider Unknown RADIATION ONCOLOGY O RDERABLES Performing Organization Address City/State/[facility] Co de Phone Number RAD ONC TREATMENT * Rad Onc Aria Session Summary (11/28/2024 1:25 PM SCOOTER MECHANIC) Course ID C2:TL_Spin e RAD ONC TREATMENT Course First Treatment Date 11/28/2024 1:23 PM RAD ONC TREATMENT Reference Point ID [email or web address] RAD ONC TREATMENT Reference Point Dosage Given to Date 4 Gy RAD ONC TREATMENT Reference Point Session Dosage Given 4 Gy RAD ONC TREATMENT Plan ID #[email or web address] C_F RAD ONC TREATMENT Plan Fractions Treated to Date 1 RAD ONC TREATMENT Plan Total Fractions Prescribed 5 RAD ONC TREATMENT Plan Total Prescribed Dose 2000 cGy RAD ONC TREATMENT 11/28/2024 1:25 PM SCOOTER MECHANIC Provider Unknown RADIATION ONCOLOGY O RDERABLES Performing Organization Address City/[facility] Co de Phone Number RAD ONC TREATMENT * CT THORAX ABDOMEN PELVIS W CONT (11/28/2024 10:17 AM SCOOTER MECHANIC) Anatomical Region Laterality Modality Chest, Abdomen, Pelvis Computed Tomography 11/28/2024 11:3 4 AM SCOOTER MECHANIC Impressions 11/28/2024 12:39 PM SCOOTER MECHANIC Impression: 1.Redemonstrated spiculated pulmonary lesions are stable from 08/29/2024 exam. 2.New sclerotic lesion in the anterior aspect of the L1 vertebral body, indeterminate nature may represent disease progression. Bone scan/MRI may be helpful for characterization. 3.Other multiple sclerotic lesions seen throughout the axial and appendicular skeleton are grossly stable. 4.Cholelithiasis without acute cholecystitis. 5.Stable hepatic hemangioma. > Dictated by Silvio Brownlee MD, (sales and marketing vice president). I, Niru Carnes MD have personally reviewed and interpreted this examination/study. > Interpreting Provider: Niru Carnes MD on 11/28/2024 12:39 PM Narrative 11/28/2024 12:39 PM SCOOTER MECHANIC PROCEDURE: CT CHEST ABDOMEN PELVIS W CONT, DATE/TIME OF EXAM: 11/28/2024 10:19 AM, LOCATION [facility] INDICATION: C34.92: Primary lung adenocarcinoma, left (HCC) ADDITIONAL CLINICAL INFORMATION: Ordering Provider Reason For Exam: Technologist Note: Additional: COMPARISON: CT chest abdomen pelvis with contrast dated 08/29/2024, MRI lumbar spine/pelvis dated 11/05/2024 TECHNIQUE: CT of the chest, abdomen, and pelvis was performed following the uneventful administration of 100 mL of Isovue 370 intravenous contrast according to standard protocol. Findings: Lower Neck and Axillae: Few subcentimeter nodules seen in the left thyroid lobe. Lungs: No pulmonary parenchymal or airway process is present. No pleural fluid or pneumothorax is present. Pulmonary nodules: Stable spiculated left upper lobe mass measuring 1.0 x 1.5 cm (series 4 image 26) Stable 2 mm nodule in the right upper lobe (series 4 image 49) There is a 2.8 x 2.2 spiculated mass in the left lower lobe (series 4 image 55), previously 2.7 x 2.0 cm when measured similarly (series 4 image 55) Heart and Pericardium: The cardiac chambers are normal in size. No pericardial fluid or thickening is present. Mediastinum and Shakila: No enlarged lymph nodes are present. Thoracic Vasculature: The aorta and its branch vessels are atherosclerotic. Liver: Multiple subcentimeter hypoattenuating hepatic lesions are too small to characterize, but likely represent hepatic cysts. Stable hyperdensity in the caudate lobe measuring 8 mm, possibly hemangioma (series 3 image 101) Gallbladder and Bile Ducts: Multiple gallstones are seen. No wall thickening or pericholecystic fluid. Spleen: Normal. Pancreas: Normal. Adrenals: Normal. Kidneys: Normal. Gastrointestinal: The stomach and visualized loops of small bowel are unremarkable. Colonic diverticulosis without evidence of diverticulitis is seen. Normal appendix. Contrast is seen in the small bowel. Mesentery/Peritoneum/Retroperitoneum: Normal. Bladder: Normal. Reproductive Organs: The prostate is normal. Vasculature: Atherosclerotic calcification of the aorta and its branch vessels. Bones: Stable sclerotic lesion in the right lateral scapula (series 3 image 29) Stable sclerotic focus in the sternum (series 3 image 41) Stable sclerotic lesion in the superior portion of the L1 vertebral body. There is new sclerosis with ill-defined margins in the anterior aspect of the L1 vertebral body. (Series 3 image 104) Stable sclerotic lesion of the right sacrum (series 3 image 160) Stable sclerotic lesion in the right iliac bone (series 3 image 178) Stable expansile sclerotic lesion in the coccyx (series 3 image 182) Stable sclerotic lesion of the left superior pubic ramus (series 3 image 199) Soft tissues: Normal. Procedure Note Niru Carnes MD - 11/28/2024 PROCEDURE: CT CHEST ABDOMEN PELVIS W CONT, DATE/TIME OF EXAM:11/28/2024 10:19 AM, LOCATION [facility] INDICATION: C34.92: Primary lung adenocarcinoma, left (HCC) ADDITIONAL CLINICAL INFORMATION: Ordering Provider Reason For Exam: Technologist Note: Additional: COMPARISON: CT chest abdomen pelvis with contrast dated 08/29/2024, MRI lumbar spine/pelvis dated 11/05/2024 TECHNIQUE: CT of the chest, abdomen, and pelvis was performed followingthe uneventful administration of 100 mL of Isovue 370 intravenous contrast according to standard protocol. Findings: Lower Neck and Axillae: Few subcentimeter nodules seen in the left thyroid lobe. Lungs: No pulmonary parenchymal or airway process is present. No pleural fluidor pneumothorax is present. Pulmonary nodules: Stable spiculated left upper lobe mass measuring 1.0 x 1.5 cm (series 4 image 26) Stable 2 mm nodule in the right upper lobe (series 4 image 49) There is a 2.8 x 2.2 spiculated mass in the left lower lobe (series 4image 55), previously 2.7 x 2.0 cm when measured similarly (series 4 image 55) Heart and Pericardium: The cardiac chambers are normal in size. No pericardial fluid orthickening is present. Mediastinum and Shakila: No enlarged lymph nodes are present. Thoracic Vasculature: The aorta and its branch vessels are atherosclerotic. Liver: Multiple subcentimeter hypoattenuating hepatic lesions are too small to characterize, but likely represent hepatic cysts. Stable hyperdensity in the caudate lobe measuring 8 mm, possibly hemangioma (series 3 [id number]) Gallbladder and Bile Ducts: Multiple gallstones are seen. No wall thickening or pericholecystic fluid. Spleen: Normal. Pancreas: Normal. Adrenals: Normal. Kidneys: Normal. Gastrointestinal: The stomach and visualized loops of small bowel are unremarkable.Colonic diverticulosis without evidence of diverticulitis is seen. Normalappendix. Contrast is seen in the small bowel. Mesentery/Peritoneum/Retroperitoneum: Normal. Bladder: Normal. Reproductive Organs: The prostate is normal. Vasculature: Atherosclerotic calcification of the aorta and its branch vessels. Bones: Stable sclerotic lesion in the right lateral scapula (series 3 image 29) Stable sclerotic focus in the sternum (series 3 image 41) Stable sclerotic lesion in the superior portion of the L1 vertebral body. There is new sclerosis with ill-defined margins in the anterior aspectof the L1 vertebral body. (Series 3 image 104) Stable sclerotic lesion of the right sacrum (series 3 image 160) Stable sclerotic lesion in the right iliac bone (series 3 image 178) Stable expansile sclerotic lesion in the coccyx (series 3 image 182) Stable sclerotic lesion of the left superior pubic ramus (series 3 image 199) Soft tissues: Normal. Impression: 1.Redemonstrated spiculated pulmonary lesions are stable from 08/29/2024 exam. 2.New sclerotic lesion in the anterior aspect of the L1 vertebral body, indeterminate nature may represent disease progression. Bone scan/MRImay be helpful for characterization. 3.Other multiple sclerotic lesions seen throughout the axial and appendicular skeleton are grossly stable. 4.Cholelithiasis without acute cholecystitis. 5.Stable hepatic hemangioma. > Dictated by Silvio Brownlee MD, (sales and marketing vice president). I, Niru Carnes MD have personally reviewed and interpreted this examination/study. > Interpreting Provider: Niru Carnes MD on 512:39 PM Patt Hyde MD CT ORDERABLES * (ABNORMAL) CREATININE - POCT INTERFACED (11/28/2024 10:06 AM SCOOTER MECHANIC) Creatinine POCT 1.02 0.30 - 1.30 mg/dL 11/28/2024 10:08 AM SCOOTER MECHANIC [facility] eGFR 84(L) >=90 mL/min/1.7 3 m2 11/28/2024 10:08 AM SCOOTER MECHANIC [facility] Blood BLOOD SPECIMEN / Unknown 11/28/2024 10:06 AM SCOOTER MECHANIC 11/28/2024 10:08 AM SCOOTER MECHANIC Patt Hyde MD LAB - POINT OF CARE ORDERABLES [address] [address], [facility] [phone] * MRI Pelvis Wwo Contrast (11/05/2024 12:41 PM SCOOTER MECHANIC) Anatomical Region Laterality Modality Pelvis Magnetic Resonan ce 11/07/2024 8:21 AM SCOOTER MECHANIC Impressions 11/07/2024 11:42 AM SCOOTER MECHANIC Impression: 1.Multifocal bony lesions are identified suggests patient's known metastatic disease. The lesion in the superior and inferior ramus of pubic bone shows enhancement and diffusion restriction suggest active disease (associated nondisplaced pathology fractures of pubic colon are also to be considered). Report dictated by Hong Leung MD I, Niru Carnes MD have personally reviewed and interpreted this examination/study. > Interpreting Provider: Niru Carnes MD on 11/07/2024 11:42 AM Narrative 11/07/2024 11:42 AM SCOOTER MECHANIC PROCEDURE: MRI PELVIS WWO CONTRAST, DATE/TIME OF EXAM: 11/05/2024 12:42 PM, LOCATION [facility] INDICATION: M54.50: Acute bilateral low back pain without sciatica C78.02: Malignant neoplasm metastatic to left lung (HCC) ADDITIONAL CLINICAL INFORMATION: Ordering Provider Reason For Exam: Rectal cancer staging Technologist Note: Additional: COMPARISON: Multiple prior CTs. TECHNIQUE: MRI of the pelvis was performed prior to and following the uneventful administration of 20 mL of Dotarem intravenous gadolinium contrast according to standard protocol. Findings: The clinical indication for this exam was 'rectal cancer staging' however no rectal cancer is present on this rectal protocol MRI. This was discussed with the patient's care provider, Dr. Hyde by Dr. Leung via telephone at approximately 9:45 AM on 11/07/2024. Within these limits, the following observations are made: Lesions compatible with known metastatic disease: *The superior and inferior ramus of the left pubic bone shows low signal intensity in T1-weighted sequence and intermediate low signal intensity T2 sequence and shows heterogeneous enhancement in postcontrast images including periosteal enhancement and enhancement of the adjacent soft tissue. There is diffusion restriction DWI sequence. With the history of malignancy these findings could suggest metastatic disease. *Heterogenous T2 hypointense 1.6 x 2.7 x 2.4 cm osseous coccygeal lesion (image 9 series 7, image 13 series 8, image 56 old and image 16 series 29). No associated diffusion restriction. The lesion shows has heterogeneous high intensity in T1-weighted sequence and becomes hypointense in the fat saturated sequences suggesting fat-containing lesion. Postcontrast images shows faint it patchy enhancement. *Heterogenous T2 hypointense left pubic ramus lesion with surrounding enhancement. Irregular margins make measurement difficult however it is approximately 2.3 x 3.0 cm. *T2 hyperintense lesion within the right iliac bone measuring approximately 0.7 x 0.5 cm with surrounding enhancement. *Previously described FDG avid sacral observations are not well characterized on this exam. The bladder is distended with fluid and appears normal. Multiple prostatic nodules not meeting criteria for follow-up. Prostate volume is 28 mL. No free pelvic fluid is identified. Diverticulosis without diverticulitis. Unremarkable MRI findings of the rectum. Prostatomegaly with features of benign prostatic hyperplasia. There is associated asymmetric thickening of the urinary bladder suggesting some degree of bladder outlet obstruction Procedure Note Niru Carnes MD - 11/07/2024 PROCEDURE: MRI PELVIS WWO CONTRAST, DATE/TIME OF EXAM: 11/05/2024 12:42PM, LOCATION [facility] INDICATION: M54.50: Acute bilateral low back pain without sciatica C78.02: Malignant neoplasm metastatic to left lung (HCC) ADDITIONAL CLINICAL INFORMATION: Ordering Provider Reason For Exam: Rectal cancer staging Technologist Note: Additional: COMPARISON: Multiple prior CTs. TECHNIQUE: MRI of the pelvis was performed prior to and following the uneventful administration of 20 mL of Dotarem intravenous gadolinium contrast according to standard protocol. Findings: The clinical indication for this exam was 'rectal cancer staging'however no rectal cancer is present on this rectal protocol MRI. This wasdiscussed with the patient's care provider, Dr. Hyde by Dr. Leung via telephoneat approximately 9:45 AM on 11/07/2024. Within these limits, the following observations are made: Lesions compatible with known metastatic disease: *The superior and inferior ramus of the left pubic bone shows low signal intensity in T1-weighted sequence and intermediate low signal intensityT2 sequence and shows heterogeneous enhancement in postcontrast images including periosteal enhancement and enhancement of the adjacent soft tissue. There is diffusion restriction DWI sequence. With the history of malignancy these findings could suggest metastatic disease. *Heterogenous T2 hypointense 1.6 x 2.7 x 2.4 cm osseous coccygeal lesion (image 9 series 7, image 13 series 8, image 56 old and image 16 [id number]). No associated diffusion restriction. The lesion shows has heterogeneous high intensity in T1-weighted sequence and becomes hypointense in thefat saturated sequences suggesting fat-containing lesion. Postcontrastimages shows faint it patchy enhancement. *Heterogenous T2 hypointense left pubic ramus lesion with surrounding enhancement. Irregular margins make measurement difficult however it is approximately 2.3 x 3.0 cm. *T2 hyperintense lesion within the right iliac bone measuringapproximately 0.7 x 0.5 cm with surrounding enhancement. *Previously described FDG avid sacral observations are not well characterized on this exam. The bladder is distended with fluid and appears normal. Multipleprostatic nodules not meeting criteria for follow-up. Prostate volume is 28 mL. No free pelvic fluid is identified. Diverticulosis without diverticulitis. Unremarkable MRI findings of the rectum. Prostatomegaly with features of benign prostatic hyperplasia. There is associated asymmetric thickening of the urinary bladder suggesting some degree of bladder outlet obstruction Impression: 1.Multifocal bony lesions are identified suggests patient's known metastatic disease. The lesion in the superior and inferior ramus ofpubic bone shows enhancement and diffusion restriction suggest active disease (associated nondisplaced pathology fractures of pubic colon are also sarika considered). Report dictated by Hong Leung MD I, Niru Carnes MD have personally reviewed and interpreted this examination/study. > Interpreting Provider: Niru Carnes MD on 511:42 AM Benita Bryan PHOTOGRAPH DEVELOPER-SOFTWARE ENGINEER MOBILE MR ORDERABLES * MRI Lumbar Spine Wwo Contrast (11/05/2024 12:40 PM SCOOTER MECHANIC) Anatomical Region Laterality Modality Spine Magnetic Resonan ce 11/07/2024 2:56 PM SCOOTER MECHANIC Impressions 11/07/2024 3:24 PM SCOOTER MECHANIC IMPRESSION: There is abnormal edema and enhancement involving the L1 vertebral body with the extension into the posterior regions as described above consistent with known metastatic lesion as seen on prior PET/CT and CT scans accounting for differences in technique.. No evidence of associated pathological fractures or definite epidural extension of the tumor. Possible minimal extension of the tumor into the inferior aspect of right T12-L1 neural foramina with associated mild neural foramina stenosis. Otherwise no definite extension into the central canal or neural foramina. There is minimal associated prevertebral soft tissue extension of the tumor, through the levels of T12-L2. No areas of abnormal contrast enhancement within the thecal sac. No other abnormal enhancing or metastatic lesions noted. No significant central canal or neural foraminal stenosis. > Interpreting Provider: Amelia Bustillos MD on 11/07/2024 3:24 PM Narrative 11/07/2024 3:24 PM SCOOTER MECHANIC PROCEDURE: MRI LUMBAR SPINE WWO CONTRAST, DATE/TIME OF EXAM: 11/05/2024 12:41 PM, LOCATION [facility] INDICATION: M54.50: Acute bilateral low back pain without sciatica C78.02: Malignant neoplasm metastatic to left lung (HCC) ADDITIONAL CLINICAL INFORMATION: Ordering Provider Reason For Exam: Technologist Note: Additional: COMPARISON: CT abdomen and pelvis 08/21/2024 TECHNIQUE: Lumbar spine MRI was performed without and with IV contrast, according to standard protocol. CONTRAST: GADOTERATE MEGLUMINE 0.5 MMOL/ML IV SSM SO:20 mL FINDINGS: The alignment is normal. Vertebral bodies are normal in height without evidence of compression fractures. There is marrow replacing lesion/metastatic lesion with associated STIR hyperintensity in the enhancement involving L1 vertebral body with extension into the bilateral pedicles and right lateral articular process. There is associated mild prevertebral soft tissue enhancement, measuring up to 3 mm in maximum thickness (image 7, 9, series 102). There is a extension of this prevertebral soft tissue enhancement superiorly up to the level of T12 and inferiorly up to the level of L2. There is mild extension of the marrow replacing lesion into the inferior aspect of right T12 L1 neural foramina with associated mild to minimal stenosis (image 18, series 3) no definite extension into the bilateral L1-L2 neural foramina. No evidence of abnormal contrast enhancement along the spinal cord or cauda equina nerve roots. Minimal linear ventral epidural enhancement throughout the lumbar spine extending into the sacrum most likely prominent venous plexus less likely epidural extension of the tumor. (Image 11, series 12). Conus medullaris terminates at the level of L1 and the distal spinal cord signal intensity is normal. No other areas of abnormal contrast enhancement No significant disc height loss. No evidence of disc herniations or significant posterior disc bulges noted. No central canal stenosis is seen. Mild to moderate facet arthropathy at the level of L5-S1, no significant facet arthropathy at other levels.. Mild right-sided neural foramina stenosis at the level of L5-S1 otherwise no significant neural foramina stenosis.. No soft tissue abnormality is identified. Procedure Note Amelia Bustillos MD - 11/07/2024 PROCEDURE: MRI LUMBAR SPINE WWO CONTRAST, DATE/TIME OF EXAM: 11/05/2024 12:41 PM, LOCATION [facility] INDICATION: M54.50: Acute bilateral low back pain without sciatica C78.02: Malignant neoplasm metastatic to left lung (HCC) ADDITIONAL CLINICAL INFORMATION: Ordering Provider Reason For Exam: Technologist Note: Additional: COMPARISON: CT abdomen and pelvis 08/21/2024 TECHNIQUE: Lumbar spine MRI was performed without and with IV contrast, accordingto standard protocol. CONTRAST: GADOTERATE MEGLUMINE 0.5 MMOL/ML IV [facility] SO:20 mL FINDINGS: The alignment is normal. Vertebral bodies are normal in height without evidence of compression fractures. There is marrow replacing lesion/metastatic lesion with associated STIR hyperintensity in the enhancement involving L1 vertebral body with extension into thebilateral pedicles and right lateral articular process. There is associated mild prevertebral soft tissue enhancement, measuring up to 3 mm in maximum thickness (image 7, 9, series 102). There is a extension of this prevertebral soft tissue enhancement superiorly up to the level of T12and inferiorly up to the level of L2. There is mild extension of the marrow replacing lesion into the inferior aspect of right T12 L1 neuralforamina with associated mild to minimal stenosis (image 18, series 3) nodefinite extension into the bilateral L1-L2 neural foramina. No evidence ofabnormal contrast enhancement along the spinal cord or cauda equina nerve roots. Minimal linear ventral epidural enhancement throughout the lumbar spine extending into the sacrum most likely prominent venous plexus lesslikely epidural extension of the tumor. (Image 11, series 12). Conus medullaris terminates at the level of L1 and the distal spinalcord signal intensity is normal. No other areas of abnormal contrastenhancement No significant disc height loss. No evidence of disc herniations or significant posterior disc bulges noted. No central canal stenosis isseen. Mild to moderate facet arthropathy at the level of L5-S1, no significant facet arthropathy at other levels.. Mild right-sided neural foramina stenosis at the level of L5-S1 otherwise no significant neural foramina stenosis.. No soft tissue abnormality is identified. IMPRESSION: There is abnormal edema and enhancement involving the L1 vertebral body with the extension into the posterior regions as described aboveconsistent with known metastatic lesion as seen on prior PET/CT and CT scans accounting for differences in technique.. No evidence of associated pathological fractures or definite epidural extension of the tumor. Possible minimal extension of the tumor into the inferior aspect ofright T12-L1 neural foramina with associated mild neural foramina stenosis. Otherwise no definite extension into the central canal or neuralforamina. There is minimal associated prevertebral soft tissue extension of the tumor, through the levels of T12-L2. No areas of abnormal contrast enhancement within the thecal sac. No other abnormal enhancing or metastatic lesions noted. No significant central canal or neural foraminal stenosis. 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
[2025-01-19] MEDS: oxyCODONE/ACETAMINOPHEN (*CRX) 5-325 MG TABLET 1 TABLET PO (18:11)
--- OUTSIDE RECORDS SUMMARY | 2025-01-19 19:02 | XMS_ITS ---
Author Organization [facility] Address [address] [facility] [place] [address] Care Team Providers Care Boiler Erector Name Role Phone Chuck Colón MD Primary Care Provider Patt Hyde MD Unavailable [phone] Active Problems Problem Noted Date Diagnosed [...]
--- OUTSIDE RECORDS SUMMARY | 2025-01-19 19:02 | XMS_ITS | Encounter Summary ---
Author Organization [facility] Address [address] [facility] [place] [address] Care Team Providers Care Chief Architect Name Role Phone Chuck Colón MD Primary Care Provider Patt Hyde MD Unavailable [phone] Encounter Details Date Type Department Care Team (Late st Contact Info) Description 07/16/2023 Telephone [facility] - Pulmonology [address] [place] [address], [place] [address] Murray Martin MD [address] [place] [address] DIV OF PULMONARY/[place] [address] Social History Tobacco Use Types Packs/Day Years [...] Dr. Murray Martin Reason for call: Mr. Kaleb Hammond had visit with his PCP Dr. Chuck Quinn 07/15/23 and she saw a LUNG MASS. Please review the imaging that was sent over to schedule a HAFSA. Patient Call Back number: Please call Daughter Yara [phone] documented in this encounter Plan of Treatment Upcoming Encounters Date Type Department Care Team (Late st Contact Info) Description 02/06/2025 10:00 AM CDT Office Visit [facility] - Hematology/Oncology [address] [place] [address] Patt Hyde MD [address] [place] [address] [place] [address] 02/06/2025 10:30 AM CDT Procedure visit [facility] - Infusion [facility] [place] [address] 02/27/2025 11:15 AM CDT Appointment [facility] PET [address] [place] [address] Patt Hyde MD [address] [place] [address] [place] [address] 02/27/2025 12:15 PM CDT Appointment [facility] PET [address] [place] [address] Patt Hyde MD [address] [place] [address] [place] [address] 04/04/2025 2:30 PM CDT Appointment [facility] MRI [address] [place] [address] Beth Turcios MD [address] [place], [place] [id number] 04/11/2025 11:30 AM CDT Appointment [facility] RAD ONC [address] [place], [place] [id number] Murray Lundberg MD [address] [place] [address] documented as of this encounter Visit Diagnoses Not on filedocumented in this encounter Care Teams Chief Architect Relationship Specialty Start Date End Date Chuck Colón MD [address] [address] PCP - General 04/08/22 Patt Hyde MD [address] [facility] [address] [place] [address] Hematology and Oncology 12/27/23 documented as of this encounter
--- OUTSIDE RECORDS SUMMARY | 2025-01-19 19:02 | XMS_ITS | Clinical Summary ---
Author Organization [facility] Address [address] [place] [address] Care Team Providers Care Afternoon Babysitter Name Role Phone Chuck Colón MD Primary Care Provider Patt Hyde MD Unavailable [phone] Source Comments [facility],non-owned Affiliates and Associated Physician Practices is amultiple site organization consisting of ambulatory clinics and hospital sitesin [place], [place], [place] and [place]. This disclosure is being madepursuant to the Care Everywhere program and may not contain all information available regarding this patient. Last updated 18.[facility] Allergies Active Allergy Reactions Criticality Noted Date [...] Novolog U 100 Insulin VL 10 ML ([place]) 09/09/2024 Active Calcium Carb-Cholecalci ferol 500-15 MG-MCGIndicatio [...] 90 tablet 3 12/12/2024 Active HYDROcodone-paty taminophen ([place]) 5-325 MG tabletIndicatio ns:Cancer associated pain Take [...] 10/27/2024 5 Discontinue d(List Clean-Up) HYDROcodone-paty taminophen ([place]) 5-325 MG tabletIndicatio ns:Cancer associated pain Take [...] [facility] - Infusion [address] [place] [address] Primary lung adenocarcinoma, left ; Metastasis to bone 01/16/2025 10:00 AM CDT Office Visit [facility] - Hematology/Oncolog y [address] [place] [address] Benita Bryan, ART CLASS MODEL-FLAKE MILLER HELPER Cancer associated pain (Primary Dx); Non-small cell cancer of left lung; Type 2 diabetes mellitus without complication, without long-term current use of insulin 01/16/2025 Travel 01/13/2025 Orders Only [facility] - Hematology/Oncolog y [address] [place] [address] Benita Bryan, ART CLASS MODEL-FLAKE MILLER HELPER 01/11/2025 Refill [facility] - Hematology/Oncolog y [place] [address] Patt Hyde MD MEDICATION REFILL 12/26/2024 11:30 AM LABORER OPERATOR Procedure visit [facility] [address] [place] [address] Primary lung adenocarcinoma, left 12/26/2024 11:00 AM LABORER OPERATOR [facility]Oncolog [facility] [place] [address] Patt Hyde MD Non-small cell cancer of left lung (Primary Dx); Cancer associated pain; Encounter for antineoplastic immunotherapy; Type 2 diabetes mellitus without complication, without long-term current use of insulin 12/19/2024 1:12 PM LABORER OPERATOR - 12/19/2024 11:59 PM LABORER OPERATOR Hospital Encounter [facility] RAD ONC [address] [place] [address] Beth Turcios MD Discharge Disposition: Home or Self Care 12/19/2024 12:56 PM LABORER OPERATOR - 12/19/2024 1:11 PM LABORER OPERATOR Hospital Encounter [facility] RAD ONC [address] [place] [phone] Beth Turcios MD Discharge Disposition: Home or Self Care 12/15/2024 Refill [facility] - Hematology/Oncolog y [address] [place] [address] Patt Hyde MD MEDICATION REFILL 12/12/2024 Refill [facility] - Hematology/Oncolog y [address] [place] [phone] Patt Hyde MD MEDICATION REFILL 12/09/2024 Orders Only [facility] - Hematology/Oncolog y [address] [place] [address] Benita Bryan APRN-FLAKE MILLER HELPER 12/07/2024 12:16 PM LABORER OPERATOR - 12/07/2024 11:59 PM LABORER OPERATOR Hospital Encounter [facility] RAD ONC [address] [place] [phone] Beth Turcios MD Discharge Disposition: Home or Self Care 12/07/2024 12:16 PM LABORER OPERATOR - 12/07/2024 11:59 PM LABORER OPERATOR Hospital Encounter [facility] RAD ONC [address] [place] [address] Beth Turcios MD Discharge Disposition: Home or Self Care 12/07/2024 Orders Only [facility] Infusion [address] [place] [address] Cinthya Matthews, GabeD 12/07/2024 Orders Only [facility] - Infusion [address] [place] [phone] Cinthya Matthews, Amadou 12/07/2024 Orders Only [facility] ONC [address] [place] [address] Beth Turcios MD Metastasis to brain ; Primary lung adenocarcinoma, left 12/05/2024 Telephone [facility] [place] [facility] - Hematology/Oncolog y [address] [place] [address] Patt Hyde MD Imaging Results 12/05/2024 Telephone [facility] ONC [address] [place] [address] Claudette Wade, LEROY Future Appointment 12/04/2024 6:21 PM LABORER OPERATOR - 12/04/2024 11:59 PM LABORER OPERATOR Hospital Encounter [facility] MRI [address] [place] [address] Patt Hyde MD Discharge Disposition: Home or Self Care 12/02/2024 12:32 PM LABORER OPERATOR - 12/02/2024 11:59 PM LABORER OPERATOR Hospital Encounter [facility] ONC [address] [place] [phone] Bteh Turcios MD Discharge Disposition: Home or Self Care 12/01/2024 1:00 PM LABORER OPERATOR - 12/01/2024 11:59 PM LABORER OPERATOR Hospital Encounter [facility] ONC [address] [place] [phone] Beth Turcios MD Discharge Disposition: Home or Self Care 2024 1:00 PM LABORER OPERATOR - 2024 11:59 PM LABORER OPERATOR Hospital Encounter [facility] RAD ONC [address] [place] [address] Beth Turcios MD Discharge Disposition: Home or Self Care 2024 12:37 PM LABORER OPERATOR - 2024 12:59 PM LABORER OPERATOR Hospital Encounter [facility] RAD ONC [address] [place] [address] Beth Turcios MD Discharge Disposition: Home or Self Care 11/29/2024 12:45 PM LABORER OPERATOR - 11/29/2024 11:59 PM LABORER OPERATOR Hospital Encounter [facility] RAD ONC [address] [place] [phone] Beth Turcios MD Discharge Disposition: Home or Self Care 11/29/2024 Telephone [facility] - Hematology/Oncolog y [address] [place] [address] Patt Hyde MD Imaging Results 11/28/2024 12:26 PM LABORER OPERATOR - 11/28/2024 11:59 PM LABORER OPERATOR Hospital Encounter [facility] ONC [address] [place] [address] Beth Turcios MD Discharge Disposition: Home or Self Care 11/28/2024 9:22 AM LABORER OPERATOR - 11/28/2024 12:25 PM LABORER OPERATOR Hospital Encounter [facility] CAT SCAN [address] [place] [address] Patt Hyde MD Discharge Disposition: Home or Self Care 11/28/2024 Oncology Treatment Summary [facility] ONC [address] [place] [address] Unknown, Provider 11/28/2024 Travel 11/17/2024 11:25 AM LABORER OPERATOR - 11/17/2024 11:59 PM LABORER OPERATOR Hospital Encounter [facility] RAD ONC [address] [place] [address] Beth Turcios MD Discharge Disposition: Home or Self Care 11/17/2024 11:25 AM LABORER OPERATOR - 11/17/2024 11:59 PM LABORER OPERATOR Hospital Encounter [facility] ONC [address] [place] [phone] Beth Turcios MD Discharge Disposition: Home or Self Care 11/16/2024 Telephone [facility] - Hematology/Oncolog y [address] [place] [address] Patt Hyde MD Medication Prior Auth Request 11/15/2024 Telephone [facility] - Hematology/Oncolog y [address] [place] [address] Patt Hyde MD Medication Prior Auth Request 11/15/2024 Telephone [facility] - Hematology/Oncolog y [address] [place] [address] Patt Hyde MD Medication Prior Auth Request 11/15/2024 Refill [facility] - Hematology/Oncolog y [address] [place] [address] Patt Hyde MD MEDICATION REFILL 11/15/2024 Telephone [facility] ONC [address] [place] [address] Claudette Wade, RN Future Appointment 11/15/2024 Orders Only [facility] ONC [address] [place] [address] Beth Turcios MD Metastasis to bone 11/14/2024 Refill [facility] - Hematology/Oncolog y [address] [place] [address] Patt Hyde MD MEDICATION REFILL 11/14/2024 Telephone [facility] RAD ONC [address] [place] [address] Claudette Wade, RN Future Appointment 11/14/2024 Refill [facility] - Hematology/Oncolog y [address] [place] [address] Patt Hyde MD MEDICATION REFILL 11/10/2024 Telephone [facility] - Hematology/Oncolog y [address] [place] [address] Benita Bryan, ART CLASS MODEL-FLAKE MILLER HELPER Imaging 11/05/2024 9:59 AM LABORER OPERATOR - 11/05/2024 11:59 PM LABORER OPERATOR Hospital Encounter [facility] MRI [address] [place] [address] Beinta Bryan, ART CLASS MODEL-FLAKE MILLER HELPER Discharge Disposition: Home or Self Care 11/05/2024 9:58 AM LABORER OPERATOR Hospital Encounter [facility] MRI [address] [place] [address] Benita Bryan, ART CLASS MODEL-FLAKE MILLER HELPER Discharge Disposition: Home or Self Care 10/27/2024 9:45 AM LABORER OPERATOR Procedure visit [facility] Infusion [address] [place] [address] Primary lung adenocarcinoma, left 10/27/2024 9:20 AM LABORER OPERATOR Office Visit [facility] - Hematology/Oncolog y [address] [place] [address] Bryan, Benita, ART CLASS MODEL-FLAKE MILLER HELPER Acute bilateral low back pain without sciatica (Primary Dx); Malignant neoplasm metastatic to left lung; Metastasis to bone; Drug-induced constipation 10/27/2024 Refill [facility] [place] [facility] - Hematology/Oncolog y [address] [place] [address] Bryan, Benita, ART CLASS MODEL-FLAKE MILLER HELPER MEDICATION REFILL 10/24/2024 Orders Only [facility] [place] [facility] - Hematology/Oncolog y [address] [place] [address] Patt Hyde MD High risk medications (not anticoagulants) long-term use; Malignant neoplasm metastatic to left lung 10/21/2024 Orders Only [facility] [place] [facility] - Hematology/Oncolog y [address] [place] [address] Bryan, Benita, ART CLASS MODEL-FLAKE MILLER HELPER from Last 3 Months Family History Medical History Relation Name Comments CAD (Coronary Artery Disease) Father 47 Relation Name Status Comments Brother 56 Alive Daughter Yara-33 Alive Father 47 Maternal Grandfather Maternal Grandmother Mother 67 Paternal Grandfather Paternal Grandmother Sister 66 Alive Son 1 Nico-37 Alive Son 2 Jesus-28 Alive Son 3 Priyank-25 Alive Son 4 Hreber-22 Alive Social History Tobacco Use Types Packs/Day [...] Recorded Patient Health Questionnaire-2 Score 0 09/17/2023 [facility] ional [facility] - Occupational [...] place to sleep or slept in a group home (including now)? No 08/10/2023 Education Answer Date [...] Physician Group - Hematology/Oncology [address] [place] [address] Patt Hyde MD [address] [address] 02/06/2025 10:30 AM CDT Procedure visit [facility] - Infusion [place] [address] 02/27/2025 11:15 AM CDT Appointment [facility] PET [address] [place] [address] Patt Hyde MD [address] [place] [address] [place] [address] 02/27/2025 12:15 PM CDT Appointment [facility] PET [address] [place] [address] Patt Hyde MD [address] [place] [address] [place] [address] 04/04/2025 2:30 PM CDT Appointment [facility] MRI [address] [place] [address] Beth Turcios MD [address] [place] [address] 04/11/2025 11:30 AM CDT Appointment [facility] RAD ONC [address] [place] [address] Murray Lundberg MD [address] [place] [address] Health Maintenance Due Date Last [...] REFLEX FREE T4 12/23/2024 9: 42 AM LABORER OPERATOR CBC W AUTO DIFFERENTIAL 12/23/2024 9:42 AM LABORER OPERATOR COMPREHENSIVE METABOLIC PANEL 12/23/2024 9:42 AM LABORER OPERATOR RAD ONC ARIA SESSION SUMMARY Routine 12/19/2024 1:30 PM LABORER OPERATOR TSH REFLEX FREE T4 12/09/2024 12 :34 PM LABORER OPERATOR CBC W AUTO DIFFERENTIAL 12/09/2024 12:34 PM LABORER OPERATOR COMPREHENSIVE METABOLIC PANEL 12/09/2024 12:34 PM LABORER OPERATOR MRI BRAIN WWO CONTRAST Routine 7:17 PM LABORER OPERATOR Malignant neoplasm metastatic to left lung RAD ONC ARIA SESSION SUMMARY Routine 12/02/2024 1:09 PM LABORER OPERATOR RAD ONC ARIA SESSION SUMMARY Routine 12/01/2024 1:17 PM LABORER OPERATOR RAD ONC ARIA SESSION SUMMARY Routine 2024 1:12 PM LABORER OPERATOR RAD ONC ARIA SESSION SUMMARY Routine 11/29/2024 1:21 PM LABORER OPERATOR RAD ONC ARIA SESSION SUMMARY Routine 11/28/2024 1:[address] CHEST ABDOMEN PELVIS W CONT Routine 11/28/2024 10:17 AM LABORER OPERATOR Primary lung adenocarcinoma, left CREATININE - POCT INTERFACED Routine 11/28/2024 10:06 AM LABORER OPERATOR MRI PELVIS WWO CONTRAST Routine 11/05/2024 12:41 PM LABORER OPERATOR Acute bilateral low back pain without sciatica Malignant neoplasm metastatic to left lung MRI LUMBAR SPINE WWO CONTRAST Routine 11/05/2024 12:40 PM LABORER OPERATOR Acute bilateral low back pain without sciatica Malignant neoplasm metastatic to left lung CBC W AUTO DIFFERENTIAL Routine 10/24/2024 10:01 AM LABORER OPERATOR Malignant neoplasm metastatic to left lung COMPREHENSIVE METABOLIC PANEL Routine 10/24/2024 10:01 AM LABORER OPERATOR Malignant neoplasm metastatic to left lung TSH REFLEX FREE T4 Routine 10/24/2024 10 :01 AM LABORER OPERATOR High risk medications (not anticoagulants) long-term use [...] Comment: REPORT COMMENT: FASTING:YES Test Performed at: [address] [address] FLORENCIO YBARRA MD 01/13/2025 9:08 AM CDT 01/13/2025 9:08 AM CDT [facility] - CHEMISTRY ORD ERABLES Performing Organization Address [facility] Co de Phone Number [address] [address] * TSH REFLEX FREE T4 (01/13/2025 9:07 AM CDT) Only the most recent of4 resultswithin the time period is included. Pathologist [facility] TSH with Reflex FT4 0.65 0.40 - 4.50 mIU/L [facility] Comment: REPORT COMMENT: FASTING:YES Test Performed at: [address] [address] FLORENCIO YBARRA MD 01/13/2025 9:07 AM CDT 01/13/2025 9:07 AM CDT Benita [facility] - CHEMISTRY ORD ERABLES Performing Organization Address City/[facility] Co de Phone Number [address] [address] * (ABNORMAL) CBC WITH DIFFERENTIAL (01/13/2025 9:06 [...] Comment: REPORT COMMENT: FASTING:YES Test Performed at: [facility] [address] FLORENCIO YBARRA MD 01/13/2025 9:06 AM CDT 01/13/2025 9:06 AM CDT Benita [facility] - HEMATOLOGY OR DERABLES [address] [address] * Rad Onc Aria Session Summary (12/19/2024 1:30 PM LABORER OPERATOR) Course ID C3:Brain_S RS RAD ONC TREATMENT [...] cGy RAD ONC TREATMENT 12/19/2024 1:30 PM LABORER OPERATOR Provider Unknown RADIATION ONCOLOGY O RDERABLES RAD ONC TREATMENT * MRI Brain Wwo Contrast (12/04/2024 7:17 PM LABORER OPERATOR) Anatomical Region Laterality Modality Head Magnetic Resonan ce 12/05/2024 9:22 AM LABORER OPERATOR Impressions 12/05/2024 11:58 AM LABORER OPERATOR IMPRESSION: 1.There are 2 enhancing lesions in [...] 12/05/2024 11:58 AM Narrative 12/05/2024 11:58 AM LABORER OPERATOR PROCEDURE: MRI BRAIN WWO CONTRAST, DATE/TIME OF EXAM: 12/04/2024 7:17 PM, LOCATION [facility] INDICATION: C78.02: Malignant neoplasm metastatic to left [...] CONTRAST, DATE/TIME OF EXAM: 12/04/2024 7:17PM, LOCATION [facility] INDICATION: C78.02: Malignant neoplasm metastatic to left [...] Onc Aria Session Summary (12/02/2024 1:09 PM LABORER OPERATOR) Course ID C2:TL_Spin e RAD ONC TREATMENT [...] cGy RAD ONC TREATMENT 12/02/2024 1:09 PM LABORER OPERATOR Provider Unknown RADIATION ONCOLOGY O RDERABLES RAD ONC TREATMENT * Rad Onc Aria Session Summary (12/01/2024 1:17 PM LABORER OPERATOR) Course ID C2:TL_Spin e RAD ONC TREATMENT [...] cGy RAD ONC TREATMENT 12/01/2024 1:17 PM LABORER OPERATOR Provider Unknown RADIATION ONCOLOGY O RDERABLES RAD ONC TREATMENT * Rad Onc Aria Session Summary (2024 1:12 PM LABORER OPERATOR) Course ID C2:TL_Spin e RAD ONC TREATMENT [...] cGy RAD ONC TREATMENT 2024 1:12 PM LABORER OPERATOR Provider Unknown RADIATION ONCOLOGY O RDERABLES RAD ONC TREATMENT * Rad Onc Aria Session Summary (11/29/2024 1:21 PM LABORER OPERATOR) Course ID C2:TL_Spin e RAD ONC TREATMENT [...] cGy RAD ONC TREATMENT 11/29/2024 1:21 PM LABORER OPERATOR Provider Unknown RADIATION ONCOLOGY O RDERABLES Performing Organization Address City/State/[facility] Co de Phone Number RAD ONC TREATMENT * Rad Onc Aria Session Summary (11/28/2024 1:25 PM LABORER OPERATOR) Course ID C2:TL_Spin e RAD ONC TREATMENT [...] cGy RAD ONC TREATMENT 11/28/2024 1:25 PM LABORER OPERATOR Provider Unknown RADIATION ONCOLOGY O RDERABLES Performing Organization Address City/[facility] Co de Phone Number RAD ONC TREATMENT * CT THORAX ABDOMEN PELVIS W CONT (11/28/2024 10:17 AM LABORER OPERATOR) Anatomical Region Laterality Modality Chest, Abdomen, Pelvis Computed Tomography 11/28/2024 11:3 4 AM LABORER OPERATOR Impressions 11/28/2024 12:39 PM LABORER OPERATOR Impression: 1.Redemonstrated spiculated pulmonary lesions are stable from 08/29/2024 exam. 2.New sclerotic lesion in the anterior aspect of the L1 vertebral body, indeterminate nature may represent disease progression. Bone scan/MRI may be helpful for characterization. 3.Other multiple sclerotic lesions seen throughout the axial and appendicular skeleton are grossly stable. 4.Cholelithiasis without acute cholecystitis. 5.Stable hepatic hemangioma. > Dictated by Silvio Brownlee MD, (vice president regulatory). I, Niru Carnes MD have personally reviewed and interpreted this examination/study. > Interpreting Provider: Niru Carnes MD on 11/28/2024 12:39 PM Narrative 11/28/2024 12:39 PM LABORER OPERATOR PROCEDURE: CT CHEST ABDOMEN PELVIS W CONT, DATE/TIME OF EXAM: 11/28/2024 10:19 AM, LOCATION [facility] INDICATION: C34.92: Primary lung adenocarcinoma, left (HCC) [...] CONT, DATE/TIME OF EXAM:11/28/2024 10:19 AM, LOCATION [facility] INDICATION: C34.92: Primary lung adenocarcinoma, left (HCC) [...] measuring 8 mm, possibly hemangioma (series 3 ) Gallbladder and Bile Ducts: Multiple gallstones are [...] hemangioma. > Dictated by Silvio Brownlee MD, (vice president regulatory). I, Niru Carnes MD have personally reviewed and interpreted this examination/study. > Interpreting Provider: Niru Carnes MD on 512:39 PM Patt Hyde MD CT ORDERABLES * (ABNORMAL) CREATININE - POCT INTERFACED (11/28/2024 10:06 AM LABORER OPERATOR) Creatinine POCT 1.02 0.30 - 1.30 mg/dL 11/28/2024 10:08 AM LABORER OPERATOR [facility] eGFR 84(L) >=90 mL/min/1.7 3 m2 11/28/2024 10:08 AM LABORER OPERATOR [facility] Blood BLOOD SPECIMEN / Unknown 11/28/2024 10:06 AM LABORER OPERATOR 11/28/2024 10:08 AM LABORER OPERATOR Patt Hyde MD LAB - POINT OF CARE ORDERABLES [address] [address], [facility] [phone] * MRI Pelvis Wwo Contrast (11/05/2024 12:41 PM LABORER OPERATOR) Anatomical Region Laterality Modality Pelvis Magnetic Resonan ce 11/07/2024 8:21 AM LABORER OPERATOR Impressions 11/07/2024 11:42 AM LABORER OPERATOR Impression: 1.Multifocal bony lesions are identified suggests [...] 11/07/2024 11:42 AM Narrative 11/07/2024 11:42 AM LABORER OPERATOR PROCEDURE: MRI PELVIS WWO CONTRAST, DATE/TIME OF EXAM: 11/05/2024 12:42 PM, LOCATION [facility] INDICATION: M54.50: Acute bilateral low back pain [...] CONTRAST, DATE/TIME OF EXAM: 11/05/2024 12:42PM, LOCATION [facility] INDICATION: M54.50: Acute bilateral low back pain [...] 8, image 56 old and image 16 ). No associated diffusion restriction. The lesion shows [...] Carnes MD on 511:42 AM Benita Bryan ART CLASS MODEL-FLAKE MILLER HELPER MR ORDERABLES * MRI Lumbar Spine Wwo Contrast (11/05/2024 12:40 PM LABORER OPERATOR) Anatomical Region Laterality Modality Spine Magnetic Resonan ce 11/07/2024 2:56 PM LABORER OPERATOR Impressions 11/07/2024 3:24 PM LABORER OPERATOR IMPRESSION: There is abnormal edema and enhancement [...] 11/07/2024 3:24 PM Narrative 11/07/2024 3:24 PM LABORER OPERATOR PROCEDURE: MRI LUMBAR SPINE WWO CONTRAST, DATE/TIME OF EXAM: 11/05/2024 12:41 PM, LOCATION [facility] INDICATION: M54.50: Acute bilateral low back pain [...] DATE/TIME OF EXAM: 11/05/2024 12:41 PM, LOCATION [facility] INDICATION: M54.50: Acute bilateral low back pain [...] MD on 11/07/2024 3:24 PM Benita Bryan ART CLASS MODEL-FLAKE MILLER HELPER MR ORDERABLES from Last 3 Months Advance Directives Documents on File Type Date Recorded Patient Program Coordinator Expl anation Adv Directive/Living Will/POA 09/18/2023 8:55 AM Care Teams Afternoon Babysitter Relationship Specialty Start Date End Date Chuck Colón MD [address] [facility] [address] [place] [address] PCP - General 04/08/22 Patt Hyde MD [address] [address] Hematology and Oncology 12/27/23
--- OUTSIDE RECORDS SUMMARY | 2025-01-19 19:02 | XMS_ITS | Encounter Summary ---
Author Organization [facility] Address [address] [place] [address] Care Team Providers Care Home Health Aide Name Role Phone Chuck Colón MD Primary Care Provider Patt Hyde MD Unavailable [phone] Reason for Visit * Reason Onset Date Comments MEDICATION REFILL 11/14/2024 Encounter Details Date Type Department Care Team (Late st Contact Info) Description 11/14/2024 Refill [facility] - Hematology/Oncology [address] [place] [address] Patt Hyde MD [address] [facility] 3 [place] [address] MEDICATION REFILL Social History Tobacco [...] Recorded Patient Health Questionnaire-2 Score 0 09/17/2023 [facility] [place] of Occupat ional Health - Occupational Stress [...] place to sleep or slept in a alf (including now)? No 08/10/2023 Education Answer Date [...] Physician Group - Hematology/Oncology [address] [place] [address] Patt Hyde MD [address] [address] 02/06/2025 10:30 AM CDT Procedure visit [facility] - Infusion [address] [place] [address] 02/27/2025 11:15 AM CDT Appointment [facility] PET [address] [place] [address] Patt Hyde MD [address] [address] 02/27/2025 12:15 PM CDT Appointment [facility] PET [address] [place] [address] Patt Hyde MD [address] [address] 04/04/2025 2:30 PM CDT Appointment [facility] MRI [address] [place] [address] Beth Turcios MD [address] [place] [address] 04/11/2025 11:30 AM CDT Appointment [facility] RAD ONC [address] [place] [address] Murray Lundberg MD [address] [place] [address] documented as of this encounter Visit Diagnoses Diagnosis 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
--- OUTSIDE RECORDS SUMMARY | 2025-01-19 19:02 | XMS_ITS | Continuity of Care Document ---
[facility] Organization [facility] Address [address] [place] [address] [address] [place] [address] Phone Care Team Providers Care Occupational Health Nurse Supervisor Name Role Phone Baugh OD, Efren Unavailable Unavailable Procedures Procedure Date Eye Exam, New Patient Advance Directives Directive Yes / No Effective Date File Name No Information Encounters Encounter Description Practice Location Reason(s) For Visit Diagnoses Date Provider Providers Copied on Encounter [facility], [address], [place], [place], [id number], [place] tel:[phone] [facility] [place] No Information [phone] Baugh OD Efren. [address] [facility] , [address], [place], [address], [place]. tel:[phone] Family History Family Member Type Diagnosis Age At Onset No Information Payers Payer name Insurance type Covered republican ID Authoriza tigilmer(s) [facility] [id number] Social History Type Description Quantity Date Captured [...]
--- NOTE | 2025-01-19 19:34 | ED_ITS ---
HPI - Extremity Injury (Lower) General Chief Complaint: Extremity Injury, Lower Stated Complaint: Fall injury to left hip-trouble walking Time Seen by Provider: 01/19/25 17:44 History of Present Illness HPI Narrative: Patient is a 64-year-old male who presents ER with pain to the right inguinal region. 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 Was getting out of his jeep when he caught his right foot and landed on his left hip. He did not strike his head or lose consciousness. Has had pain turned her weight since then. No wheeze tingling. No thigh pain or hip pain it is only in the inguinal region. No numbness/tingling. Related Data Allergies Allergy/AdvReac Type Severity Reaction Status Date / Time Penicillins Allergy Mild Hives Verified 01/19/25 15:56 Review of Systems Constitutional: Constitutional: Reports no additional constitutional complaints Musculoskeletal: Musculoskeletal: Reports no additional musculoskeletal complaints Integumentary/Breasts: Skin/Breast: Reports system reviewed and no additional complaints, except as docu Neurologic: Reports system reviewed and no additional complaints, except as documented PMFSH Past Medical History Medical History (Updated 01/19/25 @ 19:41 by Anthony Pérez MD) Metastatic primary lung cancer Exam Narrative: GENERAL: Well-appearing, well-nourished, and in no acute distress. HEAD: Normocephalic, atraumatic. ENT: Mucous membranes moist. EXTREMITIES: Range of motion left lower extremity preserved but pain is mainly in the left inguinal region. Normal sensation. SKIN: Warm, dry, no rash. NEURO: N Alert and oriented x3. PSYCH: Normal mood and affect. Course Course Emergency Course: Informed patient and family of results. He sees Oncology at [facility]. Discussed with Dr. Sun with Orthopedic surgery. Would like patient to follow up with Dr. Quinn. Patient is be weight-bearing as tolerated with a walker. Pt verbalized understanding. Patient has a disc with images. Vital Signs Vital signs: Vital Signs Temperature 98.3 F 01/19/25 15:58 Pulse Rate 74 01/19/25 15:58 Respiratory Rate 16 01/19/25 15:58 Blood Pressure 149/89 H 01/19/25 15:58 Pulse Oximetry 96 01/19/25 15:58 Oxygen Delivery Room Air 01/19/25 15:58 Temperature 98.3 F 01/19/25 15:58 Pulse Rate 74 01/19/25 15:58 Respiratory Rate 16 01/19/25 15:58 Blood Pressure 149/89 H 01/19/25 15:58 Pulse Oximetry 96 01/19/25 15:58 Oxygen Delivery Room Air 01/19/25 15:58 MDM - Extremity Injury (Lower) Imaging Data Radiologist's impression: ITS Impressions Pelvis CT 01/19/25 18:22 IMPRESSION: Comminuted fracture of the left superior pubic ramus. Metastatic bony disease, as detailed above Discharge Plan Discharge Clinical Impression: Closed fracture of superior pubic ramus, Pathologic fracture Patient Disposition: Home, Self-Care Condition: Stable Instructions: Antibiotic Form, Pelvic Fracture (ED) Additional Instructions: Follow-up with orthopedic oncology at [facility]. Return to the ER if you fall and suffer a new injury. Use a walker and bear weight as tolerated. Patient Language: Slovak Prescriptions: New oxycodone-acetaminophen [Percocet] 5-325 mg tablet 1 tablet PO Q6H PRN (Reason: pain) Qty: 14 0RF Follow-up/Referrals: Dr. Quinn [Other] - 1 Week Eldon,Chuck Mandujano MD [Primary Care Provider] -
== END 2025-01-19 20:09 | disposition home or self-care (01) ==
PROVIDERS: Emergency Provider Emergency Medicine; PCP Internal Medicine
DX: S32.512A Fracture of superior rim of left pubis, initial encounter for closed fracture (principal); C34.90 Malignant neoplasm of unspecified part of unspecified bronchus or lung; C79.51 Secondary malignant neoplasm of bone; W17.89XA Other fall from one level to another, initial encounter
CPT/HCPCS: 72192; 99284; A9270